=== PATIENT | female | born 1945 | race Caucasian/White ===

== ENCOUNTER → 2016-09-26 | Outpatient (CLI) | payer BC ==
[~2016-09-26] MED LIST: ASPCH81 PO; ASPI81TA28 PO; ATV1 PO; CALCCAP17 PO; CEFD300C2 PO; CHOL2000 PO; HYDC25 PO; HYDR25TA4 PO; MCRK20 PO; MECL1TAB42 PO; MECL25TA2 PO; MULT-19 PO; MULT-506 PO; OMEG10007 PO; OSCD250 PO; POTA20TA16 PO; PRAV10TA39 PO; PRAV20TA PO; VITAMIN D3 PO
[2016-09-26 13:14] LABS: ALT/SGPT 31 U/L (12-78); BLOOD UREA NITROGEN 14 mg/dl (7-18); BUN/CREATININE RATIO 15.5 (10-20); CALCIUM 9.1 mg/dl (8.5-10.1); CARBON DIOXIDE 27 mmol/L (21-32); CHLORIDE 104 mmol/L (98-107); CHOLESTEROL 203 mg/dl (0-200); CREATININE 0.89 mg/dl (0.60-1.20); GLUCOSE 93 mg/dl (70-99); POTASSIUM 3.5 mmol/L (3.5-5.1); SODIUM 139 mmol/L (136-145); TRIGLYCERIDES 113 mg/dl (0-150); VERY LOW DENSITY LIPOPROT CALC 23 mg/dl
[2016-09-26 13:18] LABS: ALB/GLOB RATIO 0.9 (0.9-2); ALKALINE PHOSPHATASE 63 U/L (45-117); AST/SGOT 22 U/L (15-37); CHOLESTEROL/HDL RATIO 3.2; HDL CHOLESTEROL 63 mg/dl; LDL CHOLESTEROL CALCULATED 117 mg/dl
== END | disposition home or self-care (01) ==
LOC: C.LABPVFM 09:18
PROVIDERS: ATTEND Family Medicine
DX: E78.5 Hyperlipidemia, unspecified (principal); I10 Essential (primary) hypertension; E83.52 Hypercalcemia

== ENCOUNTER → 2016-10-09 | Outpatient (CLI) | payer BC | END | disposition home or self-care (01) | LOC: C.LABPVFM 09:20 | PROVIDERS: ATTEND Family Medicine | DX: Z11.59 Encounter for screening for other viral diseases (principal) ==

== ENCOUNTER → 2017-01-01 | Outpatient (CLI) | payer BC ==
--- NOTE | 2017-01-01 13:07 | MAMMOGRAPHY REPORT ---
BILATERAL DIGITAL SCREENING MAMMOGRAM WITH CAD: 01/01/2017 CLINICAL HISTORY: Routine screening. Patient has no complaints. TECHNIQUE: Current study was also evaluated with a Computer Aided Detection (CAD) system. Bilatera l CC and MLO views were obtained. COMPARISON: Comparison is made to exams dated: 01/01/2016 mammogram, 12/28/2014 mammogram, 12/27/2013 mammogram, 12/21/2012 mammogram, 12/15/2011 ultrasound, and 12/15/2011 mammogram - [facility]. BREAST COMPOSITION: There are scattered areas of fibroglandular density in both breasts. FINDINGS: No suspicious masses, calcifications, or areas of architectural distortion are noted in e ither breast. There has been no significant interval change compared to prior exams. Small nodular asymmetry in the right medial breast middle depth on the CC view is similar to prior exams including the 2009 and 2012 exams. IMPRESSION: ACR BI-RADS CATEGORY 2: BENIGN There is no mammographic evidence of malignancy. A 1 year screening mammogram is recommended. The p atient will receive written notification of the results. Approximately 10% of breast cancers are not detected with mammography. A negative mammographic repor t should not delay biopsy if a clinically suggestive mass is present. Ivone Cooper M.D. ah/:01/01/2017 12:18:15 Animal Surgeon: Omayra RO(Sena)(M), [facility] letter sent: Normal 1/2 BI-RADS Code: ACR BI-RADS Category 2: Benign
== END | disposition home or self-care (01) ==
LOC: C.MAMM 09:55
PROVIDERS: ATTEND Family Medicine
DX: Z12.31 Encounter for screening mammogram for malignant neoplasm of breast (principal)

== ENCOUNTER 2017-02-23 21:07 | Emergency (ER) | payer BC ==
[~2017-02-23] VITALS: Ht 160 cm; Wt 68.1 kg
[~2017-02-23 21:07] MED LIST changes: -ASPI81TA28 PO; -CALCCAP17 PO; -CEFD300C2 PO; -CHOL2000 PO; -HYDR25TA4 PO; -MCRK20 PO; -MECL1TAB42 PO; -MULT-19 PO; -PRAV10TA39 PO
[2017-02-23 21:18] VITALS: TEMP 36.6; Ht 160 cm; Wt 68.1 kg
[2017-02-23 22:12] LABS: URINE APPEARANCE CLEAR (CLEAR); URINE BILIRUBIN NEG (NEG); URINE COLOR YELLOW; URINE EPITHELIAL CELL AUTO >30 /lpf (0-5); URINE NITRITE NEG (NEG); URINE SPECIFIC GRAVITY 1.012 (1.000-1.030); UROBILINOGEN NEG (NEG); ZZUR CULT IF INDIC CLEAN CATCH YES
[2017-02-23 22:14] LABS: MANUAL MICROSCOPIC REQUIRED? NO; REVIEW REQ? NO
[2017-02-23] MEDS ORDERED: PRAV10TA39 PO (22:17)
[2017-02-23] MEDS ORDERED: HYDR25TA4 PO (22:17)
[2017-02-23] MEDS ORDERED: SODIUM CHLORIDE 0.9% 1000ML 1,000 ML IV STA (22:17)
[2017-02-23] MEDS ORDERED: ASPI81TA28 PO (22:17)
[2017-02-23] MEDS ORDERED: MULT-19 PO (22:17)
[2017-02-23] MEDS ORDERED: ONDANSETRON INJ 2 MG/ML 2 ML VIAL IV STA (22:17)
[2017-02-23] MEDS ORDERED: CALCCAP17 PO (22:17)
[2017-02-23] MEDS ORDERED: MECL1TAB42 PO (22:17)
[2017-02-23] MEDS ORDERED: MCRK20 PO (22:17)
[2017-02-23] MEDS ORDERED: CHOL2000 PO (22:17)
[2017-02-23] MEDS ORDERED: MoRPHine SULFATE 4 MG/ML 1 ML CARP\\VIAL IV STA (22:17)
[2017-02-23] MEDS ORDERED: OPTIRAY 320 IV PRN (22:30)
[2017-02-23 22:46] LABS: BASO % 0.5 %; BASO ABS # 0.03 K/uL (0-0.2); COMPLETE YES; HEMATOCRIT 43.4 % (37-47); IG% 0.3 %; LYMPH % 30.2 %; LYMPH ABS # 1.75 K/uL (1.2-3.4); MEAN CELL VOLUME 86.8 fL (80-100); MEAN CORPUSCULAR HEMOGLOBIN 29.2 pg (25-34); MEAN CORPUSCULAR HGB CONC 33.6 g/dl (32-36); MEAN PLATELET VOLUME 9.1 fL (7.4-10.4); MONO % 10.9 %; NEUT % 57.1 %; PLATELET COUNT 251 K/uL (130-400); WHITE BLOOD COUNT 5.79 K/uL (4.8-10.8)
[2017-02-23 22:53] LABS: ISTAT CREATININE 0.9 mg/dl (0.6-1.3); ISTAT HEMOGLOBIN 14.3 g/dl (12.0-16.0); ISTAT IONIZED CALCIUM 1.19 mmol/l (1.12-1.32)
[2017-02-23 23:03] LABS: ALT/SGPT 29 U/L (12-78); BLOOD UREA NITROGEN 18 mg/dl (7-18); BUN/CREATININE RATIO 17.5 (10-20); CALCIUM 9.5 mg/dl (8.5-10.1); CARBON DIOXIDE 27 mmol/L (21-32); CHLORIDE 104 mmol/L (98-107); GLUCOSE 119 mg/dl (70-99); POTASSIUM 3.4 mmol/L (3.5-5.1); SODIUM 140 mmol/L (136-145)
[2017-02-23 23:06] LABS: ALKALINE PHOSPHATASE 72 U/L (45-117); AST/SGOT 16 U/L (15-37)
--- NOTE | 2017-02-23 23:06 | EMERGENCY ROOM VISIT NOTE ---
History Report prepared by Carlos: Rachelle Yang Under the Supervision of: Dr. Larry Doss M.D. First contact with patient: 21:53 Chief Complaint: BACK PAIN Stated Complaint: BACK PAIN History of Present Illness The patient is a 71 year old female who presents to the Emergency Room with complaints of persistent right flank pain starting last night. She states that she is unable to get comfortable. She applied any Icy Hot patch last night and was able to sleep. This morning she was feeling well until the late afternoon when the pain started again. She took half of a Aurora today to no significant relief. She denies any fever, chills, dysuria, hematuria, swelling in the legs, or rash. Her appetite was normal today. She denies any history of kidney stones. She has had UTI in the past, but has not had one in a while. She denies any history of kidney failure, metformin use, or diabetes. Source of History: patient Onset: last night Position: other (right flank) Quality: other (pain) Timing: other (persistent) Associated Symptoms: No fevers, No chills, No urinary symptoms, No rash Note: Pt denies swelling in the legs. Review of Systems See HPI for pertinent positives & negatives. A total of 10 systems reviewed and were otherwise negative. Past Medical & Surgical Medical Problems: (1) Hypertension Surgical Problems: (1) S/P tubal ligation Family History Diabetes mellitus FHx: gallbladder disease Hypertension Social History Smoking Status: Never Smoker Alcohol Use: none Drug Use: none Marital Status: Housing Status: lives with significant other Occupation Status: retired Current/Historical Medications Scheduled Aspirin (Aspirin Ec), 81 MG PO Q2D Calcium Carbonate-Vitamin D (Calcium/Vitamin D), 1 CAP PO DAILY Cefdinir (Omnicef), 300 MG PO Q12H Cholecalciferol (Vitamin D3), 2,000 INTER.UNIT PO DAILY Fish Oil ([place]-3), 1 CAP PO DAILY Hydrochlorothiazide (Hctz), 25 MG PO DAILY Multiple Vitamins W/ Minerals (Prosight), 1 TAB PO DAILY Multivitamin (Multivitamin), 1 TAB PO DAILY Potassium Chloride (Klor-Con M20), 20 MEQ PO BID Pravastatin Sodium (Pravastatin Sodium), 10 MG PO DAILY Scheduled PRN Meclizine Hcl (Meclizine Hcl), 25 MG PO TID PRN for Dizziness or Vertigo Allergies Coded Allergies: Fentanyl (Verified Allergy, Intermediate, RASH, 01/05/16) Midazolam (Verified Allergy, Intermediate, RASH, 01/05/16) Tetracyclines (Verified Allergy, Mild, 01/05/16) Physical Exam Vital Signs Date Time Temp Pulse Resp B/P (MAP) Pulse Ox O2 Delivery O2 Flow Rate FiO2 02/24/17 00:57 74 16 144/89 94 Room Air 02/23/17 23:28 80 16 151/75 95 Room Air 02/23/17 21:18 36.6 86 20 177/96 95 Room Air Physical Exam GENERAL: Patient is uncomfortable appearing and in mild distress. HEENT: No acute trauma, normocephalic atraumatic, mucous membranes moist, no nasal congestion, no scleral icterus. NECK: No stridor, no adenopathy, no meningismus, trachea is midline. LUNGS: No dyspnea. Clear to auscultation and equal bilaterally. No wheeze, no rhonchi. HEART: Regular rate and rhythm. No murmurs, rubs, gallops appreciated. ABDOMEN: Soft, nontender, bowel sounds positive, no masses appreciated, no peritonitis. BACK: No midline tenderness, right CVA tenderness to palpation EXTREMITIES: Normal motion all extremities, no cyanosis, no edema. NEUROLOGIC: Alert and oriented, no acute motor or sensory deficits, no focal weakness, cranial nerves grossly intact. SKIN: No rash, no jaundice, no diaphoresis. Medical Decision & Procedures ER Provider Diagnostic Interpretation: Radiology results and stated below per my review and [facility] radiologist interpretation: CT abdomen & Pelvis: Colonic diverticula without diverticulitis. Unremarkable appendix. Haziness and small nodes in the mesentery that may be from mesenteric panniculitis. There is a broader differential. Uterine fibroid. Pessary. Cardiomegaly. Laboratory Results 02/23/17 22:35 Red Blood Count 5.00, Mean Corpuscular Volume 86.8, Mean Corpuscular Hemoglobin 29.2, Mean Corpuscular Hemoglobin Concent 33.6, Mean Platelet Volume 9.1, Neutrophils (%) (Auto) 57.1, Lymphocytes (%) (Auto) 30.2, Monocytes (%) (Auto) 10.9, Eosinophils (%) (Auto) 1.0, Basophils (%) (Auto) 0.5, Neutrophils # (Auto ) 3.30, Lymphocytes # (Auto) 1.75, Monocytes # (Auto) 0.63, Eosinophils # (Auto ) 0.06, Basophils # (Auto) 0.03 02/23/17 22:35 Test 02/23/17 21:45 02/23/17 22:35 02/23/17 22:40 Urine Color YELLOW Urine Appearance CLEAR (CLEAR) Urine pH 6.0 (4.5-7.5) Urine Specific [place] 1.012 (1.000-1.030) Urine Protein NEG (NEG) Urine Glucose (UA) NEG (NEG) Urine Ketones NEG (NEG) Urine Occult Blood 1+ (NEG) Urine Nitrite NEG (NEG) Urine Bilirubin NEG (NEG) Urine Urobilinogen NEG (NEG) Urine Leukocyte Esterase LARGE (NEG) Urine WBC (Auto) 10-30 /hpf (0-5) Urine RBC (Auto) 0-4 /hpf (0-4) Urine Hyaline Casts (Auto) 0 /lpf (0-5) Urine Epithelial Cells (Auto) >30 /lpf (0-5) Urine Bacteria (Auto) NEG (NEG) White Blood Count 5.79 K/uL (4.8-10.8) Red Blood Count 5.00 M/uL (4.2-5.4) Hemoglobin 14.6 g/dL (12.0-16.0) Hematocrit 43.4 % (37-47) Mean Corpuscular Volume 86.8 fL (80-100) Mean Corpuscular Hemoglobin 29.2 pg (25-34) Mean Corpuscular Hemoglobin Concent 33.6 g/dl (32-36) Platelet Count 251 K/uL (130-400) Mean Platelet Volume 9.1 fL (7.4-10.4) Neutrophils (%) (Auto) 57.1 % Lymphocytes (%) (Auto) 30.2 % Monocytes (%) (Auto) 10.9 % Eosinophils (%) (Auto) 1.0 % Basophils (%) (Auto) 0.5 % Neutrophils # (Auto) 3.30 K/uL (1.4-6.5) Lymphocytes # (Auto) 1.75 K/uL (1.2-3.4) Monocytes # (Auto) 0.63 K/uL (0.11-0.59) Eosinophils # (Auto) 0.06 K/uL (0-0.5) Basophils # (Auto) 0.03 K/uL (0-0.2) RDW Standard Deviation 40.6 fL (36.4-46.3) RDW Coefficient of Variation 12.7 % (11.5-14.5) Immature Granulocyte % (Auto) 0.3 % Immature Granulocyte # (Auto) 0.02 K/uL (0.00-0.02) Est Creatinine Clear Calc Drug Dose 47.1 ml/min Estimated GFR () 65.2 Estimated GFR (Non- 56.2 BUN/Creatinine Ratio 17.5 (10-20) Calcium Level 9.5 mg/dl (8.5-10.1) Total Bilirubin 0.2 mg/dl (0.2-1) Direct Bilirubin < 0.1 mg/dl (0-0.2) Aspartate Amino Transf (AST/SGOT) 16 U/L (15-37) Alanine Aminotransferase (ALT/SGPT) 29 U/L (12-78) Alkaline Phosphatase 72 U/L (45-117) Total Protein 7.2 gm/dl (6.4-8.2) Albumin 3.6 gm/dl (3.4-5.0) Lipase 289 U/L (73-393) Bedside Hemoglobin 14.3 g/dl (12.0-16.0) Bedside Hematocrit 42 % (37-47) Bedside Sodium 141 mEq/L (135-144) Bedside Potassium 3.5 mEq/L (3.3-5.0) Bedside Chloride 100 mEq/L (101-112) Bedside Total CO2 26 mEq/l (24-31) Anion Gap 19.0 mmol/L (16-25) Bedside Blood Urea Nitrogen 18 mg/dl (7-18) Bedside Creatinine 0.9 mg/dl (0.6-1.3) Bedside Glucose (other) 123 mg/dl (70-99) Bedside Ionized Calcium (Rock[place]) 1.19 mmol/l (1.12-1.32) Laboratory results as reviewed by me. Medications Administered Medications (Trade) Dose Ordered Sig/Anna Route Start Time Stop Time Status Last Admin Dose Admin Sodium Chloride 1,000 ml @ 999 mls/hr Q1H1M STAT IV 02/23/17 22:17 02/23/17 23:17 DC 02/23/17 22:17 999 MLS/HR Morphine Sulfate (MoRPHine SULFATE INJ) 4 mg NOW STAT IV 02/23/17 22:17 02/23/17 22:19 DC 02/23/17 22:47 4 MG Ondansetron HCl (Zofran Inj) 4 mg NOW STAT IV 02/23/17 22:17 02/23/17 22:19 DC 02/23/17 22:46 4 MG Cephalexin Monohydrate (Keflex Cap) 500 mg NOW ONCE PO 02/24/17 01:00 02/24/17 01:01 DC 02/24/17 01:03 500 MG Ondansetron HCl (ZOFRAN ODT 4MG Home Pack) 1 homepack UD ONCE PO 02/24/17 01:00 02/24/17 01:01 DC 02/24/17 01:03 1 HOMEPACK ED Course 2156: The patient was evaluated in room B7. A complete history and physical exam was performed. 2217: Zofran Inj 4 mg IV, Morphine Sulfate 4 mg IV, NSS 1000 ml @ 999 mls/hr IV. 2340: I reevaluated the patient. She is doing well. 0050: I reevaluated the patient. I discussed results and discharge instructions : she verbalized understanding and agreement. The patient is ready for discharge. Medical Decision Differential: Renal Colic, Pyelonephritis, Hydronephrosis, Appendicitis, Diverticulitis, Retroperitoneal Bleed/Infection, Aortic Pathology, MSK, Neurologic Pathology, amongst other pathologies entertained. Medication Reconciliation: I attest that I have personally reviewed the patient 's current medication list. Blood pressure screening: Patient was found to have an elevated blood pressure and was referred to their primary doctor for recheck and further treatment. 71 yr old very pleasant female with sudden onset right flank pain along with dark urine. UA consistent with UTI. No stone on CT in ureter though mesenteric adenitis noted. Pessary in place. No respiratory nor cardiac symptoms and no evidence to suggest PE work-up necessary. Labs look good. She is feeling better after small dose narcotic. She will be treated with Abx for possible pyelonephritis. Stressed hydration. Reviewed possibility early zoster or other cause but with current findings seems reasonable treating with abx/home pain meds. Impression Primary Impression: Pyelonephritis Additional Impressions: Right flank pain Mesenteric adenitis Scribe Attestation The scribe's documentation has been prepared under my direction and personally reviewed by me in its entirety. I confirm that the note above accurately reflects all work, treatment, procedures, and medical decision making performed by me. Departure Information Dispostion Home / Self-Care Prescriptions Cefdinir (OMNICEF) 300 Mg Cap 300 MG PO Q12H for 7 Days, #14 CAP Prov: Larry Doss M.D. 02/24/17 Referrals Randall Menezes M.D. (PCP) Patient Instructions My [facility], Pyelonephritis - [facility] Problem Qualifiers
[2017-02-24 00:57] VITALS: BP 144/89; PULSE 74; O2SAT 94
[2017-02-24] MEDS ORDERED: CEFD300C2 PO (00:58)
[2017-02-24] MEDS ORDERED: ONDANSETRON HOME PACK 4MG OD TAB PO ONE (01:00)
[2017-02-24] MEDS ORDERED: CEPHALEXIN MONOHYDRATE 250 MG CAP PO ONE (01:00)
--- NOTE | 2017-02-24 06:49 | DIAGNOSTIC IMAGING REPORT ---
ABDOMEN AND PELVIS CT WITH IV CONTRAST CT DOSE: 387.67 mGy.cm HISTORY: Pain right flank pain, nausea, UTI TECHNIQUE: Multiaxial CT images of the abdomen and pelvis were performed following the use of intravenous contrast. COMPARISON STUDY: 2011 FINDINGS: Lung bases are clear. Liver spleen and pancreas enhance uniformly. Kidneys enhance uniformly. Bowel pattern is nonobstructive. There is a subtle increase in density through the mesentery. Several small reactive mesenteric nodes. Bowel pattern is nonobstructive. Prior bladder suspension procedure. Bladder itself is midline. Mild chronic colonic diverticulosis. Normal appendix. 3.5 cm uterine fibroid. IMPRESSION: 1. Mild mesenteric adenitis. 2. Stable postoperative change. 3. Uterine fibroid. Electronically signed by: Lon Seay M.D. 02/24/2017 6:47 AM Dictated Date/Time: 02/24/2017 6:44 AM
== END 2017-02-24 01:05 | disposition home or self-care (01) ==
LOC: C.EDB 21:08
DX: N12 Tubulo-interstitial nephritis, not specified as acute or chronic (principal); R10.9 Unspecified abdominal pain; I88.0 Nonspecific mesenteric lymphadenitis; I10 Essential (primary) hypertension; Z83.3 Family history of diabetes mellitus; Z82.49 Family history of ischemic heart disease and other diseases of the circulatory system; Z83.79 Family history of other diseases of the digestive system; Z79.82 Long term (current) use of aspirin; Z79.899 Other long term (current) drug therapy

== ENCOUNTER → 2017-03-10 | Outpatient (CLI) | payer BC ==
[~2017-03-10] MED LIST changes: -ASPCH81 PO; +ASPI81TA28 PO; -ATV1 PO; +CALCCAP17 PO; +CHOL2000 PO; -HYDC25 PO; +HYDR25TA4 PO; +MCRK20 PO; +MECL1TAB42 PO; -MECL25TA2 PO; +MULT-19 PO; -OSCD250 PO; -POTA20TA16 PO; +PRAV10TA39 PO; -PRAV20TA PO; -VITAMIN D3 PO
[2017-03-10 13:00] LABS: URINE APPEARANCE CLOUDY (CLEAR); URINE BILIRUBIN NEG (NEG); URINE COLOR YELLOW; URINE EPITHELIAL CELL AUTO >30 /lpf (0-5); URINE NITRITE NEG (NEG); URINE SPECIFIC GRAVITY 1.019 (1.000-1.030); UROBILINOGEN NEG (NEG); ZZUR CULT IF INDIC CLEAN CATCH YES
[2017-03-10 13:05] LABS: MANUAL MICROSCOPIC REQUIRED? NO; REVIEW REQ? YES
== END | disposition home or self-care (01) ==
LOC: C.LABPVFM 09:23
PROVIDERS: ATTEND Nurse Practitioner
DX: N39.0 Urinary tract infection, site not specified (principal)

== ENCOUNTER → 2017-03-27 | Outpatient (CLI) | payer BC ==
[2017-03-27 18:20] LABS: ALKALINE PHOSPHATASE 58 U/L (45-117); ALT/SGPT 28 U/L (12-78); AST/SGOT 20 U/L (15-37); BLOOD UREA NITROGEN 12 mg/dl (7-18); BUN/CREATININE RATIO 13.6 (10-20); CALCIUM 9.2 mg/dl (8.5-10.1); CARBON DIOXIDE 28 mmol/L (21-32); CHLORIDE 104 mmol/L (98-107); CHOLESTEROL 191 mg/dl (0-200); CREATININE 0.86 mg/dl (0.60-1.20); GLUCOSE 90 mg/dl (70-99); HDL CHOLESTEROL 63 mg/dl; LDL CHOLESTEROL CALCULATED 104 mg/dl; POTASSIUM 3.6 mmol/L (3.5-5.1); SODIUM 138 mmol/L (136-145); TRIGLYCERIDES 120 mg/dl (0-150); VERY LOW DENSITY LIPOPROT CALC 24 mg/dl
[2017-03-30 16:02] LABS: ALBUMIN 4.2 G/DL (3.8-4.8); GAMMA GLOBULIN 1.1 G/DL (0.8-1.7); IMMUNOFIXATION IGA SERUM 254 MG/DL (81-463); IMMUNOFIXATION IGG SERUM 1101 MG/DL (694-1618); IMMUNOFIXATION IGM SERUM 191 MG/DL (48-271)
== END | disposition home or self-care (01) ==
LOC: C.LABPVFM 09:23
PROVIDERS: ATTEND Family Medicine
DX: E78.5 Hyperlipidemia, unspecified (principal); I10 Essential (primary) hypertension; E87.6 Hypokalemia; E55.9 Vitamin D deficiency, unspecified; R77.1 Abnormality of globulin

== ENCOUNTER → 2017-09-07 | Outpatient (CLI) | payer OTHER ==
--- NOTE | 2017-09-07 14:25 | DIAGNOSTIC IMAGING REPORT ---
L VENOUS DOPP LOWER EXT UNILAT HISTORY: 71 years-old Female M79.669 Calf painM79.659 Thigh painSTAT REPORT PLEASE...[id number] acute left-sided calf pain COMPARISON: None available TECHNIQUE: Multiple real-time sonographic images of the left lower extremity deep venous structures were obtained assessing grayscale appearance, color and spectral flow FINDINGS: There is normal flow, phasicity, compressibility and augmentation of the left lower extremity deep venous structures. IMPRESSION: No sonographic evidence of deep venous thrombosis. The above report was generated using voice recognition software. It may contain grammatical, syntax or spelling errors. Electronically signed by: Richardson Regalado M.D. 09/07/2017 2:24 PM Dictated Date/Time: 09/07/2017 2:23 PM
== END | disposition home or self-care (01) ==
LOC: C.ULTRBC 13:46
PROVIDERS: ATTEND Family Medicine
DX: M79.669 Pain in unspecified lower leg (principal); M79.659 Pain in unspecified thigh

== ENCOUNTER → 2017-09-30 | Outpatient (CLI) | payer OTHER ==
[2017-09-30 12:57] LABS: ALBUMIN 3.9 gm/dl (3.4-5.0); ALT/SGPT 31 U/L (12-78); BLOOD UREA NITROGEN 16 mg/dl (7-18); CALCIUM 9.2 mg/dl (8.5-10.1); CARBON DIOXIDE 26 mmol/L (21-32); CHOLESTEROL 203 mg/dl (0-200); CREATININE 0.85 mg/dl (0.60-1.20); GLUCOSE 88 mg/dl (70-99); POTASSIUM 3.6 mmol/L (3.5-5.1); SODIUM 137 mmol/L (136-145)
[2017-09-30 13:01] LABS: ALKALINE PHOSPHATASE 57 U/L (45-117); AST/SGOT 21 U/L (15-37); LDL CHOLESTEROL CALCULATED 127 mg/dl; TOTAL PROTEIN 7.7 gm/dl (6.4-8.2)
== END | disposition home or self-care (01) ==
LOC: C.LABPVFM 09:13
PROVIDERS: ATTEND Family Medicine
DX: I10 Essential (primary) hypertension (principal); E87.6 Hypokalemia; F41.9 Anxiety disorder, unspecified; E78.00 Pure hypercholesterolemia, unspecified; R77.1 Abnormality of globulin; G47.00 Insomnia, unspecified

== ENCOUNTER → 2017-10-02 | Outpatient (CLI) | payer OTHER ==
--- NOTE | 2017-10-02 10:08 | DIAGNOSTIC IMAGING REPORT ---
L KNEE 1 OR 2 VIEWS ROUTINE CLINICAL HISTORY: Arthritis of knee Muscle strain of thigh pain COMPARISON: None. DISCUSSION: The bones and joint spaces appear intact. There is no evidence of fracture, dislocation or bony disease. Mild osteophytic change of the tibial spines. Minimal degenerative changes of the articular services of the patellofemoral joint. No significant joint effusion. IMPRESSION: Minimal degenerative change. No acute bony abnormality. The above report was generated using voice recognition software. It may contain grammatical, syntax or spelling errors. Electronically signed by: Lon Seay M.D. 10/02/2017 10:07 AM Dictated Date/Time: 10/02/2017 10:06 AM
== END | disposition home or self-care (01) ==
LOC: C.RADPV 09:35
PROVIDERS: ATTEND Family Medicine
DX: M17.10 Unilateral primary osteoarthritis, unspecified knee (principal); S76.919A Strain of unspecified muscles, fascia and tendons at thigh level, unspecified thigh, initial encounter; X58.XXXA Exposure to other specified factors, initial encounter

== ENCOUNTER → 2018-01-04 | Outpatient (CLI) | payer OTHER ==
--- NOTE | 2018-01-05 13:17 | MAMMOGRAPHY REPORT ---
BILATERAL DIGITAL SCREENING MAMMOGRAM TOMOSYNTHESIS WITH CAD: 01/04/2018 CLINICAL HISTORY: Routine screening. Patient has no complaints. TECHNIQUE: Breast tomosynthesis in addition to standard 2D mammography was performed. Current study was also evaluated with a Computer Aided Detection (CAD) system. COMPARISON: Comparison is made to exams dated: 01/01/2017 mammogram, 01/01/2016 mammogram, 12/28/2014 m ammogram, 12/27/2013 mammogram, 12/21/2012 mammogram, and 12/15/2011 mammogram - [facility]. BREAST COMPOSITION: There are scattered areas of fibroglandular density in both breasts. FINDINGS: The parenchymal pattern is unchanged. No developing mass, architectural distortion or clus ter of suspicious microcalcifications is seen in either breast. IMPRESSION: ACR BI-RADS CATEGORY 2: BENIGN There is no mammographic evidence of malignancy. A 1 year screening mammogram is recommended. The pa tient will receive written notification of the results. Approximately 10% of breast cancers are not detected with mammography. A negative mammographic report should not delay biopsy if a clinically suggestive mass is present. Olive Burgess M.D. ay/:01/04/2018 15:40:49 Welcome Wagon Host/Hostess: Ana RO(Sena)(M), [facility] letter sent: Normal 1/2 BI-RADS Code: ACR BI-RADS Category 2: Benign
== END | disposition home or self-care (01) ==
LOC: C.MAMM 09:33
PROVIDERS: ATTEND Family Medicine
DX: Z12.31 Encounter for screening mammogram for malignant neoplasm of breast (principal)

== ENCOUNTER → 2018-03-31 | Outpatient (CLI) | payer OTHER ==
[2018-03-31 12:57] LABS: ALBUMIN 3.9 gm/dl (3.4-5.0); ALKALINE PHOSPHATASE 52 U/L (45-117); ALT/SGPT 28 U/L (12-78); AST/SGOT 23 U/L (15-37); BLOOD UREA NITROGEN 16 mg/dl (7-18); CALCIUM 9.2 mg/dl (8.5-10.1); CARBON DIOXIDE 26 mmol/L (21-32); CHOLESTEROL 193 mg/dl (0-200); GLUCOSE 94 mg/dl (70-99); LDL CHOLESTEROL CALCULATED 114 mg/dl; POTASSIUM 3.4 mmol/L (3.5-5.1); SODIUM 136 mmol/L (136-145); TOTAL PROTEIN 7.8 gm/dl (6.4-8.2)
== END | disposition home or self-care (01) ==
LOC: C.LABPVFM 09:08
PROVIDERS: ATTEND Family Medicine
DX: E78.5 Hyperlipidemia, unspecified (principal); I10 Essential (primary) hypertension; G47.00 Insomnia, unspecified; M17.10 Unilateral primary osteoarthritis, unspecified knee; S76.919A Strain of unspecified muscles, fascia and tendons at thigh level, unspecified thigh, initial encounter; X58.XXXA Exposure to other specified factors, initial encounter

== ENCOUNTER → 2018-04-08 | Outpatient (CLI) | payer OTHER | END | disposition home or self-care (01) | LOC: C.MAMM 09:20 | PROVIDERS: ATTEND Family Medicine | DX: Z13.820 Encounter for screening for osteoporosis (principal); M81.0 Age-related osteoporosis without current pathological fracture; M85.89 Other specified disorders of bone density and structure, multiple sites ==

== ENCOUNTER 2022-12-11 05:18 | Observation (INO) ==
--- NOTE | 2022-12-02 14:23 | Anesthesiology Consultation ---
Date of Service December 02, 2022 Assessment & Plan (1) Encounter for pre-operative examination: Chart Review Chart Review: Acceptable Risk for Surgery and Patient NOT seen in Pre Admission Testing -COVID screening: Per PAT nursing assessment on 12/02/22. No known COVID-19 positive contacts or current COVID-19 related symptoms. Travel screen negative. Patient vaccinated for Covid. At surgeon discretion if preop Covid testing being done. Pt last seen by PCP 11/07/22= seen for ER follow-up regarding chest pain/indigestion. Epigastric/substernal chest pain x1 week. Intermittent/not related to exertion. Full work-up including troponins, EKG, chest x-ray and other BW all unremarkable. Also unremarkable telemetry. Patient advised that most likely her symptoms are noncardiac in nature and likely GI related in light of negative work-up. Patient was asked to increase pantoprazole and add Pepcid. Patient advised to follow-up with GI and PCP. Patient referred to general surgery for consultation regarding hernia repair to solve reflux esophagitis. Endoscopy done 1 year ago with only gastritis, no malignancy or H. pylori on biopsy. Chest painlikely due to GERD rather than cardiac etiology. Red flags discussed nevertheless. (Discussed with Dr. Mar- patient can proceed as scheduled; no physical limitations per nursing assessment) History Surgery Operation Date: 12/11/22 07:15 Proposed Procedures p Laparoscipic Hiatal Hernia, T[place] Fundoplication - Blair Beard, DO Height/Weight Height: 5 ft 2 in Weight: 58.967 kg Allergies Allergy/AdvReac Type Severity Reaction Status Date / Time fentanyl Allergy Intermediate RASH Verified 12/02/22 13:21 midazolam Allergy Intermediate RASH Verified 12/02/22 13:21 cefdinir AdvReac Mild Gastrointestinal Verified 12/02/22 13:21 Upset Tetracyclines AdvReac Mild Gastrointestinal Verified 12/02/22 13:21 Upset Medications Home Medications Medication Instructions Recorded Confirmed Last Taken multivitamin 1 tab PO QAM 03/21/19 12/02/22 11/06/21 cholecalciferol (vitamin D3) 25 1,000 unit PO QAM 05/30/19 12/02/22 11/06/21 mcg (1,000 unit) tablet glucosam 750 mg-chondroi 100 1 tab PO QAM 05/30/19 12/02/22 11/06/21 mg-hyalur 1.65 mg-CF borate 108 mg tablet (Move Free Siteminis) calcium carbonate 600 mg calcium 600 mg PO QAM 11/04/21 12/02/22 11/06/21 (1,500 mg) tablet (Calcium) docusate sodium 100 mg capsule 100 mg PO HS PRN Constipation 02/27/22 12/02/22 Unknown levothyroxine 25 mcg tablet 25 mcg PO DAILYBB #90 tabs 08/26/22 12/02/22 11/02/22 losartan 25 mg tablet 25 mg PO HS #90 tabs 08/26/22 12/02/22 Unknown potassium chloride 20 mEq 40 meq PO QAM #180 tabs 08/26/22 12/02/22 Unknown tablet,extended release(part/cryst) (Klor-Con M) pravastatin 20 mg tablet 20 mg PO HS #90 tabs 08/26/22 12/02/22 Unknown hydrochlorothiazide 25 mg tablet 25 mg PO QAM #90 tabs 09/02/22 12/02/22 Unknown meclizine 25 mg tablet 25 mg PO TID PRN dizziness #60 tabs 11/07/22 12/02/22 Unknown famotidine 10 mg tablet (Pepcid AC) 10 mg PO QPM 11/25/22 12/02/22 Unknown pantoprazole 40 mg tablet,delayed 40 mg PO QAM 12/02/22 12/02/22 Unknown release Past Medical History Medical History Anxiety Brain aneurysm 3mm per 06/2022 head CTA (seeing neuro as a new patient 01/2023) Diverticulitis of colon Diverticulosis of colon Dysphagia Elevated serum globulin level Ganglion GERD (gastroesophageal reflux disease) Hiatal hernia History of anesthesia reaction difficulty waking Hyperlipidemia Hypertension Hypothyroidism Insomnia Osteopenia after menopause Rectocele Scoliosis Past Family History Family History Father Stroke syndrome Sister Diabetes Hypertension Brother Coronary heart disease Macular degeneration Mother Dementia Other No family history of adverse response to anesthesia Denies family history of Ovarian cancer Prostate cancer Myocardial infarction Breast cancer Colorectal cancer Past Surgical History Surgical History H/O: hysterectomy TVH, Anterior colporrhaphy, Biat uterosacral ligament vag vault suspension, cystoscopy on 01/26/[address] [facility] History of bladder suspension procedure History of colonoscopy History of tooth extraction Status post trigger finger release on both thumbs Social History Smoking Status: Never smoker Do You Dip or Chew Tobacco: No Hx Alcohol Use: Yes alcohol intake frequency: holidays/special occasions only Hx Substance Use: No substance use type: does not use Lab Results Anesthesia Preop Results Results Anesthesia Widget: WBC 5.13 K/ul (4.8-10.8) 11/02/22 Hgb 13.7 g/dl (12.0-16.0) 11/02/22 Hct 40.6 % (37.0-47.0) 11/02/22 Plt 250 K/uL (130-400) 11/02/22 Na 137 mmol/L (136-145) 11/02/22 K 3.5 mmol/L (3.5-5.1) 11/02/22 Cl 103 mmol/L (98-107) 11/02/22 CO2 27 mmol/L (21-32) 11/02/22 BUN 16 mg/dl (6-23) 11/02/22 Creat 0.74 mg/dl (0.6-1.2) 11/02/22 Glucose Level 115 mg/dl (70-99(Fasting)) H 11/02/22 PT 10.3 Seconds (9.0-12.0) 11/02/22 INR 1.0 (0.9-1.1) 11/02/22 Testing Electrocardiogram Date: 11/02/22 Poor data quality Normal sinus rhythm at 81 bpm When compared to EKG from July 082premature supraventricular complexes are no longer present per cardio Chest X-Ray Date: 11/02/22 Findings: + NAD Other Testing Neck CTA 07/08/22= No occlusion, hemodynamically significant stenosis, or dissection in the major cervical arteries. Assessment of stenosis of the internal carotid arteries is based on NASCET criteria. Head CTA 07/08/22= No acute intracranial abnormality. Involutional changes with chronic microvascular ischemic disease. 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 Otherwise unremarkable CTA of the head.
[2022-12-11] MEDS ORDERED: ceFAZolin 2000MG 2,000 MG/15 ML SYR IV SCH (06:00)
[2022-12-11] MEDS ORDERED: LR 15ML/HR IV SCH (06:00)
[2022-12-11] MEDS ORDERED: PROPOFOL IV EMULSION 10 MG/ML 20 ML VIAL IV ONE (06:55)
[2022-12-11] MEDS ORDERED: LIDOCAINE 2% MPF LOCAL 5 ML VIAL ONE (06:55)
[2022-12-11] MEDS ORDERED: SUCCINYLCHOLINE CHLORIDE 20 MG/ML 10 ML VIAL IV ONE (06:55)
[2022-12-11] MEDS ORDERED: PHENYLEPHRINE HCL 10 MG/ML VIAL ONE (06:55)
[2022-12-11] MEDS ORDERED: ePHEDrine sulfate 50 MG/ML AMP ONE (06:55)
[2022-12-11] MEDS ORDERED: ROCURONIUM BROMIDE 10 MG/ML 5 ML VIAL IV ONE (06:55)
[2022-12-11] MEDS ORDERED: MIDAZOLAM HCL 1 MG/ML 2ML VIAL ONE (06:56)
[2022-12-11] MEDS ORDERED: fentaNYL citrate PF 100 MCG/2 ML VIAL ONE ×2 (06:56→07:52)
--- NOTE | 2022-12-11 07:03 | History & Physical Bridge Note ---
Date of Service December 11, 2022 History & Physical Bridge Note I have examined the patient, reviewed the History & Physical and in the interval since the performance of the History & Physical I have noted the following changes of clinical significance: no changes noted
[2022-12-11] MEDS ORDERED: ONDANSETRON INJ 2 MG/ML 2 ML VIAL IV PRN ×2 (07:04→10:59)
[2022-12-11] MEDS ORDERED: ATROPINE SULFATE 0.1 MG/ML 10ML SYR IV PRN (07:04)
[2022-12-11] MEDS ORDERED: METOCLOPRAMIDE HCL INJ 5 MG/ML 2 ML VIAL IV PRN (07:04)
[2022-12-11] MEDS ORDERED: DEXAMETHASONE SOD INJ 4 MG/ML VIAL IV PRN (07:04)
[2022-12-11] MEDS ORDERED: ePHEDrine sulfate 50 MG/ML AMP IV PRN (07:04)
[2022-12-11] MEDS ORDERED: BUPIVACAINE/EPINEPHRINE 0.5% MPF 1:200,000 30 ML VIAL ONE (07:08)
[2022-12-11] MEDS ORDERED: diphenhydrAMINE 50 MG/ML VIAL ONE (07:51)
[2022-12-11] MEDS ORDERED: hydrALAZINE HCL 20 MG/ML VIAL ONE (07:53)
[2022-12-11] MEDS ORDERED: DEXAMETHASONE SOD INJ 4 MG/ML VIAL ONE (08:18)
[2022-12-11] MEDS ORDERED: ONDANSETRON INJ 2 MG/ML 2 ML VIAL ONE (08:18)
[2022-12-11] MEDS ORDERED: SUGAMMADEX SODIUM 200 MG/2 ML VIAL IV ONE (08:54)
--- NOTE | 2022-12-11 09:13 | Operative Report ---
PG Post Operative Report Pre & Post Diagnosis Operation Date: 12/11/22 07:15 Pre-Op Diagnosis: Hiatal Hernia;gerd Post-Op Diagnosis: Hiatal Hernia;gerd I identified the patient and participated in the time-out.: Yes Procedure Operation Date: 12/11/22 07:15 Actual Procedures p Laparoscopic Hiatal Hernia,Partial Fundoplication, gastropexy.(Not Applicable) - Blair Beard DO Surgeon Blair Beard DO Rn Triage ross Rodriguez Estimated Blood Loss 20 Findings Consistent with Post-Op Diagnosis Specimens none Description of Procedure After informed consent was obtained the patient was taken to the operating room and placed in supine position. After successful intubation an orogastric tube was placed by anesthesia. The abdomen was sterilely prepped and draped in usual fashion. A supraumbilical incision was made with an 11 blade scalpel and carried down through soft tissue using cautery. Anterior fascia was opened using cautery and two #0 Vicryl stay sutures were placed. Peritoneum was entered using blunt finger penetration to take down any adhesions. A 12 mm Singer trocar was placed and the abdomen was insufflated to 16 mmHg. The laparoscope was inserted and the abdomen examined 360 degrees. No gross abnormalities were seen. A subxiphoid 5 mm port, a right upper quadrant 12 mm port a right flank 5 mm port and a left flank 5 mm port were all placed under direct vision. The patient was placed in reverse Trendelenburg position. A liver retractor was used to elevate the left lobe of the liver. It was secured to the table using a table odell. We began by opening the gastrohepatic ligament using the harmonic scalpel. We carried this up the right crura of the diaphragm over the top and down onto the left crura of the diaphragm to excise the hernia sac. The hernia itself was relatively small probably 4 cm. There was no gastric incarceration. After excising the hernia sac we then took down the top four short gastric vessels again using the harmonic scalpel. We then created the retrogastric window using blunt dissection just above the left gastric vessels. Next I used an Endo Stitch device with 0 Surgidac to primarily close the hiatal hernia defect first posteriorly followed by anteriorly. Next we used a reticulating grasper to come through the retrogastric window and grasp ed the fundus of the stomach. The fundus was easily pulled through the retrogastric window. A posterior gastropexy was performed again using 0 Surgidac securing the body of the stomach to the right crura of the diaphragm. We then completed the 270 degree wrap by suturing stomach on the lateral side of the esophagus to the anterior esophageal fat pad followed by fundus which was now on the right side of the esophagus also to the anterior fat pad. The wrap was nice and loose and floppy. The 50 [place] bougie was easily removed. At the end the procedure there was adequate hemostasis. Irrigation of the upper abdomen was performed. The liver retractor and all the trocars were removed and the abdomen desufflated. The fascia of the camera port was closed using 0 Vicryl in a [id number] fashion. All the wounds were irrigated and closed using 4-0 Monocryl. Marcaine with epinephrine was injected around them for postoperative analgesia and skin glue used as a dressing. My physician captain assistant was present through the entire case was instrumental in running the camera as well as assisting with repair of the hernia fundoplication wound closure and dressing placement. I attest to the content of the Intraoperative Record and any orders documented therein. Any exceptions are noted below.
[2022-12-11] MEDS: HYDROmorphone INJ 1 MG/ML SYRINGE IV PRN ×5 (09:30→10:00)
[2022-12-11] MEDS ORDERED: ACETAMINOPHEN 1,000 MG/100 ML VIAL IV STA (10:06)
[2022-12-11] MEDS ORDERED: ACETAMINOPHEN 1000 MG/100 ML IV IV ONE (10:06)
[2022-12-11] MEDS ORDERED: oxyCODONE HCL IR 5 MG TAB (IMMEDIATE RELEASE) PO PRN ×2 (10:59)
[2022-12-11] MEDS ORDERED: PROMETHAZINE HCL 12.5 MG in SODIUM CHLORIDE 0.9% 50 ML IV PRN (10:59)
[2022-12-11] MEDS ORDERED: MoRPHine SULFATE 2 MG/ML CARP IV PRN (10:59)
[2022-12-11] MEDS ORDERED: MECLIZINE HCL 25 MG TAB PO PRN (10:59)
--- NOTE | 2022-12-11 11:21 | Anesthesiology Progress Note ---
Date of Service December 11, 2022 Anesthesia Post Procedure Vital Signs Vital Signs: Temp Pulse Pulse Resp BP Pulse Ox O2 Del Method 12/11/22 10:50 36.8 C 102 H 14 142/68 H 95 Room Air, Nasal Cannula 12/11/22 10:40 111 H 16 146/59 H 95 Nasal Cannula 12/11/22 10:30 111 H 15 135/67 94 Nasal Cannula 12/11/22 10:20 112 H 18 149/63 H 94 Nasal Cannula 12/11/22 10:10 37.0 C 106 H 16 146/71 H 95 Nasal Cannula 12/11/22 10:00 110 H 19 157/71 H 94 Nasal Cannula 12/11/22 09:50 108 H 16 157/69 H 94 Oxymask 12/11/22 09:40 107 H 20 152/70 H 94 Oxymask 12/11/22 09:30 106 H 18 165/76 H 97 Oxymask 12/11/22 09:20 106 H 19 162/73 H 98 Oxymask 12/11/22 09:10 36.4 C L 108 H 19 161/70 H 95 Oxymask 12/11/22 06:00 36.3 C L 83 20 163/88 H 97 Room Air O2 Flow Rate 12/11/22 10:50 2 12/11/22 10:40 2 12/11/22 10:30 2 12/11/22 10:20 2 12/11/22 10:10 2 12/11/22 10:00 2 12/11/22 09:50 3 12/11/22 09:40 3 12/11/22 09:30 4 12/11/22 09:20 6 12/11/22 09:10 8 12/11/22 06:00 Pain Intensity Abdomen: Pain Intensity: 4 Transfer of Care Handoff Completed per policy Notes Mental Status: alert / awake / arousable and participated in evaluation Nausea / Vomiting: adequately controlled Pain: adequately controlled Airway Patency, RR, SpO2: stable & adequate BP & HR: stable & adequate Hydration State: stable & adequate Anesthetic Complications: no major complications apparent and Pt Satisfied with anesthetic care
[2022-12-11] MEDS ORDERED: HYDROCODONE/ACETAMOPHEN 5/325MG TAB PO PRN (11:23)
[2022-12-11] MEDS: LACTATED RINGER'S 1,000 ML IV SCH ×2 (11:32→20:07)
[2022-12-11] MEDS ORDERED: ACETAMINOPHEN 1,000 MG/100 ML VIAL IV SCH (12:00)
[2022-12-11] MEDS: MoRPHine SULFATE 4 MG/ML 1 ML CARP\\VIAL IV PRN ×2 (14:20→23:34)
[2022-12-11] MEDS ORDERED: ACETAMINOPHEN 1,000 MG/100 ML VIAL IV PRN (18:00)
[2022-12-11] MEDS: HYDROCODONE/ACETAMOPHEN 5/325MG TAB PO PRN (18:28)
[2022-12-12] MEDS: LACTATED RINGER'S 1,000 ML IV SCH (05:42)
[2022-12-12] MEDS ORDERED: LEVOTHYROXINE SODIUM 25 MCG TABLET PO SCH (06:30)
[2022-12-12 06:42] LABS: Basophils # (auto) 0.04 K/uL (0-0.2); Basophils % (auto) 0.4 %; Eosinophils # (auto) 0.01 K/uL (0-0.50); Eosinophils % (auto) 0.1 %; Hematocrit (blood only) 38.9 % (37.0-47.0); Hemoglobin 13.1 g/dl (12.0-16.0); Immature Granulocytes # (auto) 0.12 K/uL (0.01-0.20); Immature Granulocytes % (auto) 1.1 %; Lymphocytes # (auto) 1.98 K/uL (1.2-3.4); Lymphocytes % (auto) 17.9 %; Mean Corpuscular Hemoglobin 30.8 pg (25.0-34.0); Mean Corpuscular Hgb Conc 33.7 g/dL (32.0-36.0); Mean Corpuscular Volume 91.5 fL (80.0-100.0); Mean Platelet Volume 9.7 fL (9.4-12.4); Monocytes % (auto) 10.8 %; Neutrophils # (auto) 7.73 K/uL (1.40-6.50); Neutrophils % (auto) 69.7 %; Platelet Count 274 K/uL (130-400); RDW Coefficient of Variation 13.2 % (11.5-14.5); RDW Standard Deviation 43.7 fL (36.4-46.3); Red Blood Count 4.25 M/uL (4.20-5.40); White Blood Count 11.08 K/ul (4.8-10.8)
[2022-12-12 06:53] LABS: BUN Creatinine Ratio 12.3 (10-20); Calcium 9.1 mg/dl (8.6-10.3); Creatinine Clr Calc Pharmacy 64.3 ml/min; Est GFR (African American) 102.9 ml/min; Est GFR (Non-African American) 88.8 ml/min
[2022-12-12] MEDS: HYDROCODONE/ACETAMOPHEN 5/325MG TAB PO PRN (08:20)
[2022-12-12] MEDS ORDERED: PANTOprazole 40 MG TAB PO SCH (09:00)
--- NOTE | 2022-12-12 10:53 | Surgery Progress Note ---
Date of Service December 12, 2022 Assessment & Plan (1) Hiatal hernia: Plan: POD#1 hiatal hernia repair with toupet fundoplication WBC 11, Hbg 13. Vitals are stable Patient feeling well overall. Pain controlled. tolerating liquid diet She is stable for discharge to home Recommend a liquidy diet over the next couple of weeks and will see her in the office within 1-2 weeks for follow up with Dr. Beard as above. doing well ok for d/c instructions reviewed. Admission and Anticipated Discharge Date Admission Date: December 11, 2022 Subjective Patient reports feeling better than yesterday. She is tolerating clears without nausea/vomiting. Pain is controlled. Physical Exam Physical Exam: awake/alert, no distress Respiratory: normal respiratory effort Gastrointestinal (Abdomen): Inspection/Auscultation: + abdominal surgical incision (with dermabond) Percussion/Palpation: abdomen soft Results & Data Vital Signs (Past 12 Hours) Vital Signs Temp Pulse Pulse Resp BP Pulse Ox O2 Del Method 12/12/22 07:53 36.7 C 85 14 158/78 H 95 Room Air 12/12/22 03:16 36.9 C 91 H 18 143/69 H 94 Room Air 12/11/22 23:22 36.8 C 97 H 16 156/82 H 94 Room Air PG Care Time/CCT Total # of Minutes Spent Total Time Spent with Patient: Total time spent is greater than 50% in coordination of care (as documented) at patient's floor/unit and/or counseling patient: Coding Level of Care Code 91260 Post Operative Follow-Up Diagnoses Hiatal hernia K44.9
--- NOTE | 2022-12-15 15:22 | Discharge Summary ---
Date of Service December 12, 2022 Principal Diagnosis hiatal hernia repair Discharge Exam awake/alert, no distress Respiratory normal respiratory effort Gastrointestinal (Abdomen) Inspection/Auscultation: + abdominal surgical incision (with dermabond) Percussion/Palpation: abdomen soft Discharge Data Allergies Allergy/AdvReac Type Severity Reaction Status Date / Time fentanyl Allergy Intermediate RASH Verified 12/11/22 05:48 midazolam Allergy Intermediate RASH Verified 12/11/22 05:48 oxycodone AdvReac Intermediate "Makes me Verified 12/11/22 05:48 feel goofy and sick to my stomach" cefdinir AdvReac Mild Gastrointestinal Verified 12/11/22 05:48 Upset Tetracyclines AdvReac Mild Gastrointestinal Verified 12/11/22 05:48 Upset Procedures Performed Operation Date: 12/11/22 07:15 Actual Procedures p Laparoscopic Hiatal Hernia, Fundoplication, gastropexy.(Not Applicable) - Blair Beard, DO Hospital Course (1) Hiatal hernia: This is a 77yF who presented to the [facility] on 12/11/22 for elective repair of her hiatal hernia along with toupet fundoplication with Dr. Beard. The patient to lerated the procedure well, see op note for full details. The patient recovered in the PACU and was transferred to the med/surg floor in stable condition. She was given a clear liquid diet and remained on maintenance IVF POD#0. Pain controlled with prn IV and PO medications and anti-emetics were ordered as needed. On POD#1 the patient reported her pain was manageable on current pain regimen. She was tolerating clear liquids without any nausea/vomiting. She was able to ambulate without issues. She was deemed stable for discharge to home on 4 on a soft/liquidy diet. She was instructed to follow up in clinic within 2 weeks. Total Time Total Time Spent Total Time Spent (In Minutes): 10 Discharge Plan Discharge Items Patient Disposition: Home - Self-Care Reason For Visit: Hiatal Hernia Discharge Diagnosis: laparoscopic hiatal hernia repair Activity: Per Instructions section Lifting: No more than 10 pounds Bathing Comment: may shower starting 12/12/22; no soaking in tubs/pools x2 weeks Exercise/Sports: Wait until after follow-up appointment Driving/Machine Use: no driving while taking narcotics for pain Non-emergency contact: Surgeon Call non-emergency contact if: you have any medication questions, your symptoms worsen, your pain is not controlled, your pain is concerning for you, you have a fever, your temperature is above 101.5, your wound has increased redness, your wound has increased drainage and your wound pain has increased Follow-up/Referrals: Blair Beard, DO [Surgeon] - (Call to schedule follow up in clinic within 1 week) Dennise Martinez MD [Primary Care Provider] - Diet: Other - See Diet Comment Addtl Attending Provider Instructions: Please follow diet instructions as reviewed with you by Dr. Beard. A soft/liquidy diet and things that can be eaten with a spoon until you see him in the office. Pending Studies at Discharge: No Stand-Alone Forms: My [facility], Pain - Opioid Pain Management Medications and DC Order Prescriptions: New hydrocodone-acetaminophen 5-325 mg tablet 1 - 2 tab PO .q4h- q6h PRN (Reason: pain, for initial therapy, max 6 tabs per day ) Qty: 15 0RF ondansetron 4 mg tablet,disintegrating 4 mg PO Q8H PRN (Reason: nausea and vomiting) Qty: 20 0RF Continued levothyroxine 25 mcg tablet 25 mcg PO DAILYBB Qty: 90 3RF losartan 25 mg tablet 25 mg PO HS Qty: 90 3RF potassium chloride [Klor-Con M20] 20 mEq tablet,ER particles/crystals 40 meq PO QAM Qty: 180 3RF pravastatin 20 mg tablet 20 mg PO HS Qty: 90 3RF hydrochlorothiazide 25 mg tablet 25 mg PO QAM Qty: 90 3RF multivitamin tablet 1 tab PO QAM cholecalciferol (vitamin D3) 1,000 unit (25 mcg) tablet 1,000 unit PO QAM Move Free Alerts Health 750 mg-100 mg- 1.65 mg-108 mg tablet 1 tab PO QAM famotidine [Pepcid AC] 10 mg tablet 10 mg PO QPM meclizine 25 mg tablet 25 mg PO TID PRN (Reason: dizziness) Qty: 60 0RF docusate sodium 100 mg capsule 100 mg PO BID PRN (Reason: Constipation) calcium carbonate [Calcium 600] 600 mg calcium (1,500 mg) Tablet 600 mg PO QAM pantoprazole 40 mg tablet,delayed release (/EC) 40 mg PO QAM Discharge Orders: Discharge Order (Routine); Ordered 12/12/22 Ordered By: Leticia Rodriguez Admission Data Admit Date/Time: 12/11/22 09:10 Attending Provider: Blair Beard Admit Provider: Blair Beard Primary Care Provider: Dennise Martinez Other Interventions: Discharge Summary Assessment (RN) Last Done: 12/12/22 10:56 Coding Level of Care Code 78783 IN/OBS DISCH 30 MIN/LESS Diagnoses Hiatal hernia K44.9
== END 2022-12-12 12:02 | disposition home or self-care (01) ==
LOC: 3W 05:18 → ASU 05:18 → 3W 20:06

== ENCOUNTER 2023-04-23 18:05 | Observation (INO) ==
[2023-04-23] MEDS ORDERED: SODIUM CHLORIDE 0.9% 1,000 ML IV SCH (18:30)
--- NOTE | 2023-04-23 18:50 | Emergency Department Note ---
Impression & Plan Syncope, PAF (paroxysmal atrial fibrillation) ED Provider Note NAME: CURRY SOTO AGE: 77 SEX: F : 1945 ARRIVES VIA: Ambulance INFORMANT: Patient, the patient's family ED PROVIDER(S): Uzair Vera DO CHIEF COMPLAINT: Syncope HPI: The patient is a 77-year-old female who presented to the emergency department for an evaluation of syncope. The patient was sitting at a table with her daughter. She had an episode where she became unresponsive. She was not answering questions. The patient was felt to have had a syncopal episode. She had no postictal phase. There was no seizure. She states that she has not been feeling well over the course the last few weeks. She states that she has been feeling very tired. She denies having any chest pain or difficulty breathing. She denies having any nausea or vomiting. The patient has a history of atrial fibrillation. She does not take blood thinners. ROS: See above HPI for pertinent positives & negatives. A total of 10 systems reviewed and were otherwise negative. PAST MEDICAL HISTORY: See Below PAST SURGICAL HISTORY: See Below FAMILY HISTORY: See Below SOCIAL HISTORY: See Below HOME MEDICATIONS: See Below ALLERGIES: See Below VITALS: See Below PHYSICAL EXAMINATION: GENERAL: Patient is awake alert in no acute distress patient is resting comfo rtably and showing no signs of anxiety EYES: The conjunctivae are clear. The pupils are round and reactive. EARS, NOSE, MOUTH AND THROAT: The nose is without any evidence of any deformity. Mucous membranes are moist. Tongue is midline. NECK: The neck is nontender and supple. RESPIRATORY: Normal respiratory effort is noted there is no evidence of wheezing rhonchi or rales CARDIOVASCULAR: Irregular and tachycardic heart sounds were noted auscultation. There is no definite murmur. GASTROINTESTINAL: The abdomen is soft. Abdomen is nontender. MUSCULOSKELETAL/EXTREMITIES: There is no evidence of gross deformity full range of motion is noted in the hips and shoulders. SKIN: There is no obvious evidence of any rash. There are no petechiae, pallor or cyanosis noted. NEUROLOGIC: Patient is awake alert and oriented x3. Strength is symmetric. Speech was clear. MEDICAL DECISION MAKING: The patient is a 77-year-old female who presented to the emergency department with her family for an evaluation of syncopal episode. The patient had a period of unresponsiveness. There is no postictal phase. The patient was found to be in atrial fibrillation upon arrival to the emergency department. During her time in the emergency department she did not revert back to sinus rhythm. I discussed the patient's laboratory and radiographic studies with her. Given her findings today she may require further work-up including formal cardiology evaluation. She has been having symptoms intermittently. This does not appear to be her first episode of atrial fibrillation given her clinical findings. For this reason I discussed her condition with the on-call [facility] hospitalist. They have agreed to evaluate the patient in the emergency department for further management and disposition. Triage Nursing notes reviewed. Prior medical records reviewed Vital Signs: reviewed and remarkable for elevated blood pressure. Differential diagnosis: Vasovagal event, dehydration, infection, hypoglycemia, electrolyte abnormalities, cardiac sources, intracerebral event, pulmonary embolism, seizure, toxicologic, neurologic, as well as other pathologies. ER treatment provided: See below Diagnostics interpreted by me: ECG: EKG was obtained in the emergency department. My interpretation is atrial fibrillation at 113 bpm. Rapid ventricular response was noted. There were no PVCs. This was compared to from November 02, 2022. Sinus rhythm has been replaced with atrial fibrillation. A second EKG was obtained in the emergency department. My interpretation is sinus rhythm at 91 bpm. PACs were noted. There was no PVCs. Sinus rhythm has replaced atrial fibrillation compared to earlier tracing. Cardiac Monitoring: An order was placed for continuous cardiac monitoring. The monitor shows a rate of 89 bpm with sinus rhythm. Laboratory studies: As stated above and show below. Imaging studies: See below. Radiographic imaging was reviewed by myself Consultation(s): I discussed the patient's condition with Dr. Lechuga who is on-call for the [facility] group. Past Med/Surg History Medical History Anxiety Brain aneurysm 3mm per 06/2022 head CTA, saw neuro (Rose Valenzuela) 01/2023; was referred to neuro surgeon at [facility], has not followed up yet Diverticulosis of colon Dysphagia Chronic issue since medication change (only occurs when swallowing large potassium pills) GERD (gastroesophageal reflux disease) Hyperlipidemia Hypertension Hypothyroidism Insomnia Osteopenia after menopause Scoliosis Seasonal allergies Shoulder pain Right steroid injection (Dr. Pulliam 03/2023) Surgical History H/O: hysterectomy TVH, Anterior colporrhaphy, Biat uterosacral ligament vag vault suspension, cystoscopy (2019) History of anesthesia reaction "difficulty waking" History of bladder suspension procedure History of colonoscopy History of repair of hiatal hernia Laparoscopic Repair Hiatal Hernia, Partial Fundoplication, gastropexy (): Grade view 1, Glidescope#3, ETT 7.0, atraumatic x1 at [facility] History of tooth extraction Status post trigger finger release R/L thumbs Family History Father Stroke syndrome Sister Diabetes Hypertension Brother Coronary heart disease Macular degeneration Mother Dementia Other No family history of adverse response to anesthesia Denies family history of Ovarian cancer Prostate cancer Myocardial infarction Breast cancer Colorectal cancer Social History Smoking Status: Never smoker Second Hand Exposure: No; Do You Dip or Chew Tobacco: No; Hx Alcohol Use: Yes Alcohol Intake Frequency: Monthly or Less Hx Substance Use: No Preferred Language: Albanian Communication Ability: Effective Visual Impairment: Limited Hearing Ability: Normal Masking Machine Operator Required: No Beliefs That Will Affect Care: None marital status: Current Living Situation: Spouse current 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: employed and retired 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 How many Children do You have: 2 Feels Safe at Home: Yes Childhood Exposure to Second-Hand Smoke: Yes Diet: Soft Diet Comment: Due to surgery caffeine: Yes (Coffee and tea) during the past year weight has: remained stable Dental Care, Regularly: Yes Physical Activity Frequency: Daily Seatbelt Use: always Sunscreen Use: Yes Assistive Devices: Glasses Allergies Allergies Allergy/AdvReac Type Severity Reaction Status Date / Time fentanyl Allergy Intermediate Rash Verified 04/21/23 09:45 midazolam Allergy Intermediate Rash Verified 04/21/23 09:45 oxycodone AdvReac Intermediate Feel Verified 04/21/23 09:45 "goofy" and "sick to my stomach" cefdinir AdvReac Mild Gastrointestinal Verified 04/21/23 08:50 Upset Tetracyclines AdvReac Mild Gastrointestinal Verified 04/21/23 08:50 Upset Home Meds Home Medications Medication Instructions Recorded Confirmed multivitamin 1 tab PO QAM 03/21/19 04/23/23 cholecalciferol (vitamin D3) 25 1,000 unit PO QAM 05/30/19 04/23/23 mcg (1,000 unit) tablet glucosam 750 mg-chondroi 100 1 tab PO QAM 05/30/19 04/23/23 mg-hyalur 1.65 mg-CF borate 108 mg tablet (Move Free [employer]) calcium carbonate 600 mg calcium 600 mg PO QAM 11/04/21 04/23/23 (1,500 mg) tablet (Calcium) docusate sodium 100 mg capsule 100 mg PO BID 02/27/22 04/23/23 famotidine 10 mg tablet (Pepcid AC) 10 mg PO QPM 11/25/22 04/23/23 pantoprazole 40 mg tablet,delayed 40 mg PO QAM 12/02/22 04/23/23 release Previous Rx's Medication Instructions Recorded levothyroxine 25 mcg tablet 25 mcg PO DAILYBB #90 tabs 08/26/22 losartan 25 mg tablet 25 mg PO HS #90 tabs 08/26/22 potassium chloride 20 mEq 40 meq PO QAM #180 tabs 08/26/22 tablet,extended release(part/cryst) (Klor-Con M) pravastatin 20 mg tablet 20 mg PO HS #90 tabs 08/26/22 hydrochlorothiazide 25 mg tablet 25 mg PO QAM #90 tabs 09/02/22 meclizine 25 mg tablet 25 mg PO TID PRN dizziness #60 tabs 11/07/22 ondansetron 4 mg disintegrating 4 mg PO Q8H PRN nausea and 12/12/22 tablet vomiting #20 tabs Results & Data (ED) Vital Signs Vital Signs - 24 hr 04/23/23 18:12 04/23/23 18:12 04/23/23 18:45 Temperature 36.7 C Temperature Source Temporal Artery Scan Pulse Rate 120 H Pulse Rate [Apical] Respiratory Rate 20 Blood Pressure 139/92 Blood Pressure [Left Arm] Blood Pressure Mean 107 Blood Pressure Mean [Left Arm] Pulse Oximetry 97 95 Oxygen Delivery Method Room Air Room Air Room Air Sepsis Recent Fever Within 48 Hours No Sepsis New/Unexplained Change in Mental Status N/A Sepsis Action Taken by Nursing No Action Required 04/23/23 18:19 04/23/23 20:21 04/23/23 20:56 Temperature Temperature Source Pulse Rate 98 H 92 H Pulse Rate [Apical] 108 H Respiratory Rate 20 18 Blood Pressure 135/90 Blood Pressure [Left Arm] 135/90 Blood Pressure Mean 105 Blood Pressure Mean [Left Arm] 105 Pulse Oximetry 96 97 Oxygen Delivery Method Room Air Room Air Sepsis Recent Fever Within 48 Hours Sepsis New/Unexplained Change in Mental Status Sepsis Action Taken by Nursing 04/23/23 22:17 04/23/23 22:27 Temperature Temperature Source Pulse Rate 91 H Pulse Rate [Apical] 103 H Respiratory Rate 20 Blood Pressure Blood Pressure [Left Arm] 152/89 H Blood Pressure Mean Blood Pressure Mean [Left Arm] 110 Pulse Oximetry 97 Oxygen Delivery Method Room Air Sepsis Recent Fever Within 48 Hours Sepsis New/Unexplained Change in Mental Status Sepsis Action Taken by Skilled Nursing Medications Current Medication List: was personally reviewed by me Laboratory Data Attestation: I reviewed the patient's lab results. 04/23/23 18:42 04/23/23 18:26 Lab Results 04/23/23 04/23/23 04/23/23 Range/Units 18:26 18:26 18:26 WBC (4.8-10.8) K/ul RBC (4.20-5.40) M/uL Hgb (12.0-16.0) g/dl Hct (37.0-47.0) % MCV (80.0-100.0) fL MCH (25.0-34.0) pg MCHC (32.0-36.0) g/dL RDW Std Deviation (36.4-46.3) fL RDW Coeff of Ameya (11.5-14.5) % Plt Count (130-400) K/uL MPV (9.4-12.4) fL Immature Gran % (Auto) % Neut % (Auto) % Lymph % (Auto) % [place] % (Auto) % Eos % (Auto) % Baso % (Auto) % Neut # (Auto) (1.40-6.50) K/uL Lymph # (Auto) (1.20-3.40) K/uL [place] # (Auto) (0.11-0.59) K/uL Eos # (Auto) (0.00-0.50) K/uL Baso # (Auto) (0.00-0.20) K/uL Immature Gran # (Auto) (0.01-0.20) K/uL PT 11.3 (9.0-12.0) Seconds INR 1.0 (0.9-1.1) APTT 24.3 (21.0-31.0) Seconds PTT Ratio 0.9 Sodium 133 L (136-145) mmol/L Potassium 3.5 (3.5-5.1) mmol/L Chloride 99 (98-107) mmol/L Carbon Dioxide 26 (21-32) mmol/L Anion Gap 8 (3-11) BUN 13 (6-23) mg/dl Creatinine 0.57 L (0.6-1.2) mg/dl Est Cr Clr Drug Dosing 72.3 ml/min Est GFR ( Amer) 102.9 ml/min Est GFR (Non-Af Amer) 88.8 ml/min BUN/Creatinine Ratio 22.8 H (10-20) Glucose 106 H (70-99(Fasting)) mg/dl Calcium 8.7 (8.6-10.3) mg/dl Magnesium 2.0 (1.7-2.4) mg/dl Total Bilirubin 0.4 (0.2-1.0) mg/dl AST 23 (13-39) U/L ALT 15 (7-52) U/L Alkaline Phosphatase 50 (34-104) U/L Total Creatine Kinase 30 (26-192) U/L Troponin I High Sens 9.2 (0-14) pg/ml Total Protein 6.8 (6.0-8.3) gm/dl Albumin 4.0 (3.4-5.0) gm/dl Globulin 2.8 (2.5-4.0) gm/dl Albumin/Globulin Ratio 1.4 (0.9-2) Lipase 47 (11-82) U/L TSH 0.013 L (0.300-4.500) uIu/ml Free T4 2.32 H (0.61-1.60) ng/dl Free T3 (2.3-4.2) pg/ml Urine Color Urine Appearance (Clear) Urine pH (4.5-7.5) Ur Specific [place] (1.000-1.030) Urine Protein (Negative) Urine Glucose (UA) (Negative) Urine Ketones (Negative) Urine Blood (Negative) Urine Nitrite (Negative) Urine Bilirubin (Negative) Urine Urobilinogen (Negative) Ur Leukocyte Esterase (Negative) Urine WBC (Auto) (0-5) /hpf Urine RBC (Auto) (0-4) /hpf U Hyaline Cast (Auto) (0-5) /lpf U Epithel Cells (Auto) (0-5) /lpf Urine Bacteria (Auto) (Negative) 04/23/23 04/23/23 04/23/23 Range/Units 18:28 18:42 20:20 WBC 6.21 (4.8-10.8) K/ul RBC 4.66 (4.20-5.40) M/uL Hgb 14.7 (12.0-16.0) g/dl Hct 42.2 (37.0-47.0) % MCV 90.6 (80.0-100.0) fL MCH 31.5 (25.0-34.0) pg MCHC 34.8 (32.0-36.0) g/dL RDW Std Deviation 41.6 (36.4-46.3) fL RDW Coeff of Ameya 12.7 (11.5-14.5) % Plt Count 258 (130-400) K/uL MPV 9.8 (9.4-12.4) fL Immature Gran % (Auto) 2.1 % Neut % (Auto) 61.2 % Lymph % (Auto) 11.4 % Flag[place] % (Auto) 24.6 % Eos % (Auto) 0.2 % Baso % (Auto) 0.5 % Neut # (Auto) 3.80 (1.40-6.50) K/uL Lymph # (Auto) 0.71 L (1.20-3.40) K/uL [place] # (Auto) 1.53 H (0.11-0.59) K/uL Eos # (Auto) 0.01 (0.00-0.50) K/uL Baso # (Auto) 0.03 (0.00-0.20) K/uL Immature Gran # (Auto) 0.13 (0.01-0.20) K/uL PT (9.0-12.0) Seconds INR (0.9-1.1) APTT (21.0-31.0) Seconds PTT Ratio Sodium (136-145) mmol/L Potassium (3.5-5.1) mmol/L Chloride (98-107) mmol/L Carbon Dioxide (21-32) mmol/L Anion Gap (3-11) BUN (6-23) mg/dl Creatinine (0.6-1.2) mg/dl Est Cr Clr Drug Dosing ml/min Est GFR ( Amer) ml/min Est GFR (Non-Af Amer) ml/min BUN/Creatinine Ratio (10-20) Glucose (70-99(Fasting)) mg/dl Calcium (8.6-10.3) mg/dl Magnesium (1.7-2.4) mg/dl Total Bilirubin (0.2-1.0) mg/dl AST (13-39) U/L ALT (7-52) U/L Alkaline Phosphatase (34-104) U/L Total Creatine Kinase (26-192) U/L Troponin I High Sens (0-14) pg/ml Total Protein (6.0-8.3) gm/dl Albumin (3.4-5.0) gm/dl Globulin (2.5-4.0) gm/dl Albumin/Globulin Ratio (0.9-2) Lipase (11-82) U/L TSH (0.300-4.500) uIu/ml Free T4 (0.61-1.60) ng/dl Free T3 4.34 H (2.3-4.2) pg/ml Urine Color Yellow Urine Appearance Clear (Clear) Urine pH 7.5 (4.5-7.5) Ur Specific [place] 1.007 (1.000-1.030) Urine Protein Negative (Negative) Urine Glucose (UA) Negative (Negative) Urine Ketones Trace H (Negative) Urine Blood Trace H (Negative) Urine Nitrite Negative (Negative) Urine Bilirubin Negative (Negative) Urine Urobilinogen Negative (Negative) Ur Leukocyte Esterase Negative (Negative) Urine WBC (Auto) 1-5 (0-5) /hpf Urine RBC (Auto) 0-4 (0-4) /hpf U Hyaline Cast (Auto) 1-5 (0-5) /lpf U Epithel Cells (Auto) 0-5 (0-5) /lpf Urine Bacteria (Auto) Negative (Negative) Administered Medications Discontinued Medications Sodium Chloride (Nss) 1,000 mls @ 999 mls/hr IV .[id number] MONSE Stop: 04/23/23 19:30 Last Infusion: 04/23/23 19:52 Dose: 0 mls/hr Documented By: Admin: 04/23/23 18:50 Dose: 999 mls/hr Documented By: MMG Imaging Data Attestation: I personally reviewed and interpreted this imaging study as follows: My Impression: CT of the brain was obtained in the emergency department. My interpretation is no intracranial hemorrhage or mass effect, final report below. 1 view chest x-ray was obtained in the emergency department. My interpretation is no free air or definite infiltrate, this was compared to a chest x-ray from November 02, 2022. No changes were noted. Final report pending. Radiologist's Impression: Head CT 04/23/23 18:48 Exam(s): CT HEAD Without Contrast EXAM: CT Head Without Intravenous Contrast CLINICAL HISTORY: Reason for exam: syncope, AMS. TECHNIQUE: Axial computed tomography images of the head/brain without intravenous contrast. CTDI is 38.55 mGy and DLP is 624.41 mGy-cm. Automated exposure control was utilized for the study. A dose lowering technique was utilized adhering to the principles of ALARA. COMPARISON: No relevant prior studies available. FINDINGS: No acute intracranial hemorrhage. No midline shift or mass effect. The territorial mahoney-white matter differentiation is maintained throughout. Age-related cerebral volume loss. Periventricular and subcortical white matter hypoattenuation, consistent with chronic microangiopathy. The visualized orbits appear grossly unremarkable. The calvarium is intact. The visualized paranasal sinuses and mastoid air cells are grossly clear. IMPRESSION: No acute intracranial hemorrhage, midline shift, or mass effect. Electronically signed by: Sixto Reich MD 04/23/23 20:11 PM Discharge Plan Visit Data Chief Complaint: Syncope Stated Complaint: SYNCOPE, NEW ONSET AFIB ED Provider: Uzair Vera Discharge Problem: Syncope, PAF (paroxysmal atrial fibrillation) Patient Disposition: Being Evaluated by Hospitalist Forms Stand Alone Forms: My [facility] Prescriptions Prescriptions: No Action levothyroxine 25 mcg tablet 25 mcg PO DAILYBB Qty: 90 3RF losartan 25 mg tablet 25 mg PO HS Qty: 90 3RF potassium chloride [Klor-Con M20] 20 mEq tablet,ER particles/crystals 40 meq PO QAM Qty: 180 3RF pravastatin 20 mg tablet 20 mg PO HS Qty: 90 3RF hydrochlorothiazide 25 mg tablet 25 mg PO QAM Qty: 90 3RF multivitamin tablet 1 tab PO QAM cholecalciferol (vitamin D3) 1,000 unit (25 mcg) tablet 1,000 unit PO QAM [employer] 750 mg-100 mg- 1.65 mg-108 mg tablet 1 tab PO QAM famotidine [Pepcid AC] 10 mg tablet 10 mg PO QPM meclizine 25 mg tablet 25 mg PO TID PRN (Reason: dizziness) Qty: 60 0RF docusate sodium 100 mg capsule 100 mg PO BID calcium carbonate [Calcium 600] 600 mg calcium (1,500 mg) Tablet 600 mg PO QAM pantoprazole 40 mg tablet,delayed release (DR/EC) 40 mg PO QAM ondansetron 4 mg tablet,disintegrating 4 mg PO Q8H PRN (Reason: nausea and vomiting) Qty: 20 0RF Referrals Referrals: Dennise Martinez MD [Primary Care Provider] -
[2023-04-23 19:00] LABS: Albumin Globulin Ratio 1.4 (0.9-2); BUN Creatinine Ratio 22.8 (10-20); Bilirubin,Total 0.4 mg/dl (0.2-1.0); Calcium 8.7 mg/dl (8.6-10.3); Creatinine Clr Calc Pharmacy 72.3 ml/min; Est GFR (African American) 102.9 ml/min; Est GFR (Non-African American) 88.8 ml/min; Globulin 2.8 gm/dl (2.5-4.0); Potassium 3.5 mmol/L (3.5-5.1); Total Protein 6.8 gm/dl (6.0-8.3)
[2023-04-23 19:04] LABS: Basophils # (auto) 0.03 K/uL (0.00-0.20); Basophils % (auto) 0.5 %; Eosinophils # (auto) 0.01 K/uL (0.00-0.50); Eosinophils % (auto) 0.2 %; Hematocrit (blood only) 42.2 % (37.0-47.0); Hemoglobin 14.7 g/dl (12.0-16.0); Immature Granulocytes # (auto) 0.13 K/uL (0.01-0.20); Immature Granulocytes % (auto) 2.1 %; Lymphocytes # (auto) 0.71 K/uL (1.20-3.40); Lymphocytes % (auto) 11.4 %; Mean Corpuscular Hemoglobin 31.5 pg (25.0-34.0); Mean Corpuscular Hgb Conc 34.8 g/dL (32.0-36.0); Mean Corpuscular Volume 90.6 fL (80.0-100.0); Mean Platelet Volume 9.8 fL (9.4-12.4); Monocytes # (auto) 1.53 K/uL (0.11-0.59); Monocytes % (auto) 24.6 %; Neutrophils % (auto) 61.2 %; Platelet Count 258 K/uL (130-400); RDW Coefficient of Variation 12.7 % (11.5-14.5); RDW Standard Deviation 41.6 fL (36.4-46.3); Red Blood Count 4.66 M/uL (4.20-5.40); White Blood Count 6.21 K/ul (4.8-10.8)
[2023-04-23 19:06] LABS: Troponin I High Sensitivity 9.2 pg/ml (0-14)
[2023-04-23 19:12] LABS: Partial Thromboplastin Ratio 0.9; Partial Thromboplastin Time 24.3 Seconds (21.0-31.0); Prothrombin Time 11.3 Seconds (9.0-12.0)
[2023-04-23 19:15] LABS: Thyroid Stimulating Hormone 0.013 uIu/ml (0.300-4.500)
--- NOTE | 2023-04-23 20:12 | CT Scan Report ---
Exam(s): CT HEAD Without Contrast EXAM: CT Head Without Intravenous Contrast CLINICAL HISTORY: Reason for exam: syncope, AMS. TECHNIQUE: Axial computed tomography images of the head/brain without intravenous contrast. CTDI is 38.55 mGy and DLP is 624.41 mGy-cm. Automated exposure control was utilized for the study. A dose lowering technique was utilized adhering to the principles of ALARA. COMPARISON: No relevant prior studies available. FINDINGS: No acute intracranial hemorrhage. No midline shift or mass effect. The territorial mahoney-white matter differentiation is maintained throughout. Age-related cerebral volume loss. Periventricular and subcortical white matter hypoattenuation, consistent with chronic microangiopathy. The visualized orbits appear grossly unremarkable. The calvarium is intact. The visualized paranasal sinuses and mastoid air cells are grossly clear. IMPRESSION: No acute intracranial hemorrhage, midline shift, or mass effect. Electronically signed by: Sixto Reich MD 04/23/23 20:11 PM
[2023-04-23 20:15] LABS: T4 Free Thyroxine 2.32 ng/dl (0.61-1.60)
[2023-04-23 20:44] LABS: Appearance Urine Clear (Clear); Bacteria Urine Automated Negative (Negative); Bilirubin Urine Negative (Negative); Blood Urine Trace (Negative); Color Urine Yellow; Epithelial Cell Urine Auto 0-5 /lpf (0-5); Glucose Urine UA Negative (Negative); Ketones Urine Trace (Negative); Leukocyte Esterase Urine Negative (Negative); Nitrite Urine Negative (Negative); Protein Urine Negative (Negative); RBC Urine Automated 0-4 /hpf (0-4); Specific Gravity Urine 1.007 (1.000-1.030); Urobilinogen Urine Negative (Negative); pH Urine 7.5 (4.5-7.5)
--- NOTE | 2023-04-23 22:06 | History & Physical Report ---
Date of Service April 23, 2023 Assessment & Plan (1) Syncope: Plan: 77yo female presenting with syncopal event. New atrial fibrillation noted on initial EKG, possible cause of syncopal event. -Admit to medical with telemetry -Check 2D echo (2) Atrial fibrillation: Plan: Patient with atrial fibrillation noted on initial EKG. No history of prior. Blood pressure is stable. Electrolytes largely normal. Patient with abnormal thyroid function testing - TSH low at 0.013 and T4 high at 2.32. She is on Synthroid 25mcg po daily which is a stable unchanged dose. No new medications or recent illness. Hyperthyroidism - with recent heat intolerance, weight loss and new atrial fibrillation. -Check 2D echo -Check T3 -Check thyroid ultrasound (3) Hypothyroidism: Plan: With hyperthyroidism. Patient is on stable dose of Synthroid 25mcg po daily. -Hold synthroid -Check T3 -Thyroid ultrasound -Initiate propranolol 10mg po TID (4) Hypertension: Plan: Blood pressure mildly elevated -Continue Losartan 25mg po daily -Hold HCTZ in setting of mild hyponatremia with Ng=373 (5) Hyperlipidemia: Plan: Chronic. Stable -Continue Pravastatin 20mg po qHS (6) GERD (gastroesophageal reflux disease): Plan: Chronic. Stable. -Continue Protonix 40mg po daily (7) Brain aneurysm: Plan: Patient with 3mm aneurysm discovered on brain imaging 06/2022 on CTA. She was seen by Neurology in January 2023 and is to followup with Neurosurgery at [facility] at some point. She has not yet been seen by Neurosurgery. She is scheduled to have repeat brain imaging in June. Denies headache, visual changes, focal deficits. History of Present Illness Chief Complaint: syncope Primary Care Provider: Dennise Martinez MD Genny Corona is a 77yo female with history of HTN, HLP, GERD and Hypothyroidism presenting after an episode of syncope. Patient was sitting at the table with her daughter tonight around 17:15 when when she slumped forward and became unresponsive. She was out for approximately 45 seconds then woke up. Her daughter says that she was initially slightly confused but then returned to normal quickly. Patient does not recall the event. She denies chest pain, palpitations, dizziness or lightheadedness. No report of fever or chills, cough, SOB or headache. Patient with no prior syncopal events. Additionally, patient endorses some heat intolerance for the last several weeks as well as weight loss of approximately 25# since having a hiatal hernia repair surgery in November 2022. She has been eating much less since her surgery. Today she had a couple of crackers with peanut butter and chocolate milk only. Upon arrival she was found to be in atrial fibrillation with RVR, no history of such. Repeat EKG with sinus rhythm with PACs ER Course: NSS x 1L Allergies Allergy/AdvReac Type Severity Reaction Status Date / Time fentanyl Allergy Intermediate Rash Verified 04/21/23 09:45 midazolam Allergy Intermediate Rash Verified 04/21/23 09:45 oxycodone AdvReac Intermediate Feel Verified 04/21/23 09:45 "goofy" and "sick to my stomach" cefdinir AdvReac Mild Gastrointestinal Verified 04/21/23 08:50 Upset Tetracyclines AdvReac Mild Gastrointestinal Verified 04/21/23 08:50 Upset Home Medications Medication Instructions Recorded Confirmed Type multivitamin 1 tab PO QAM 03/21/19 04/23/23 History cholecalciferol (vitamin D3) 25 1,000 unit PO QAM 05/30/19 04/23/23 History mcg (1,000 unit) tablet glucosam 750 mg-chondroi 100 1 tab PO QAM 05/30/19 04/23/23 History mg-hyalur 1.65 mg-CF borate 108 mg tablet ([facility]) calcium carbonate 600 mg calcium 600 mg PO QAM 11/04/21 04/23/23 History (1,500 mg) tablet (Calcium) docusate sodium 100 mg capsule 100 mg PO BID 02/27/22 04/23/23 History levothyroxine 25 mcg tablet 25 mcg PO DAILYBB #90 tabs 08/26/22 04/23/23 Rx losartan 25 mg tablet 25 mg PO HS #90 tabs 08/26/22 04/23/23 Rx potassium chloride 20 mEq 40 meq PO QAM #180 tabs 08/26/22 04/23/23 Rx tablet,extended release(part/cryst) (Klor-Con M) pravastatin 20 mg tablet 20 mg PO HS #90 tabs 08/26/22 04/23/23 Rx hydrochlorothiazide 25 mg tablet 25 mg PO QAM #90 tabs 09/02/22 04/23/23 Rx meclizine 25 mg tablet 25 mg PO TID PRN dizziness #60 tabs 11/07/22 04/23/23 Rx famotidine 10 mg tablet (Pepcid AC) 10 mg PO QPM 11/25/22 04/23/23 History pantoprazole 40 mg tablet,delayed 40 mg PO QAM 12/02/22 04/23/23 History release ondansetron 4 mg disintegrating 4 mg PO Q8H PRN nausea and 12/12/22 04/23/23 Rx tablet vomiting #20 tabs Past Med/Surg History Medical History Anxiety Brain aneurysm 3mm per 06/2022 head CTA, saw neuro (Rose Valenzuela) 01/2023; was referred to neuro surgeon at [facility], has not followed up yet Diverticulosis of colon Dysphagia Chronic issue since medication change (only occurs when swallowing large potassium pills) GERD (gastroesophageal reflux disease) Hyperlipidemia Hypertension Hypothyroidism Insomnia Osteopenia after menopause Scoliosis Seasonal allergies Shoulder pain Right steroid injection (Dr. Pulliam 03/2023) Surgical History H/O: hysterectomy TVH, Anterior colporrhaphy, Biat uterosacral ligament vag vault suspension, cystoscopy (2018) History of anesthesia reaction "difficulty waking" History of bladder suspension procedure History of colonoscopy History of repair of hiatal hernia Laparoscopic Repair Hiatal Hernia, Partial Fundoplication, gastropexy (12/11/22): Grade view 1, Glidescope#3, ETT 7.0, atraumatic x1 at [facility] History of tooth extraction Status post trigger finger release R/L thumbs Family History Father Stroke syndrome Sister Diabetes Hypertension Brother Coronary heart disease Macular degeneration Mother Dementia Other No family history of adverse response to anesthesia Denies family history of Ovarian cancer Prostate cancer Myocardial infarction Breast cancer Colorectal cancer Social History Smoking Status: Never smoker Second Hand Exposure: No; Do You Dip or Chew Tobacco: No; Hx Alcohol Use: Yes Alcohol Intake Frequency: Monthly or Less Hx Substance Use: No Preferred Language: Indian Communication Ability: Effective Visual Impairment: Limited Hearing Ability: Normal Can Closing Machine Operator Required: No Beliefs That Will Affect Care: None marital status: Current Living Situation: Spouse current 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: employed and retired 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 How many Children do You have: 2 Feels Safe at Home: Yes Childhood Exposure to Second-Hand Smoke: Yes Diet: Soft Diet Comment: Due to surgery caffeine: Yes (Coffee and tea) during the past year weight has: remained stable Dental Care, Regularly: Yes Physical Activity Frequency: Daily Seatbelt Use: always Sunscreen Use: Yes Assistive Devices: Glasses Review of Systems Review of Systems: All systems reviewed & are unremarkable except as noted in HPI & below Physical Exam Physical Exam: General: patient resting comfortably, NAD, non-toxic in appearance, AA&O x 4 Skin: warm, dry, intact, no rashes or lesions HEENT: NC/AT, PERRL, EOMI, anicteric sclera, conjunctiva without injection, external ear normal to inspection and nontender, nares patent, moist mucus membranes, dentition intact, no oropharyngeal lesions, neck supple, trachea midline, no LAD, no thyromegaly, goiter, nodules or tenderness, no JVD Heart: +S1/S2, regular with ectopy, tachycardic, no m/r/g Lungs: equal air entry bilaterally, no rales/rhonchi/wheezes Abd: +BS, soft, NT/ND, no masses/organomegaly/ascites Ext: warm, 2+ pulses in UE/LE bilaterally, no clubbing/cyanosis, trace pitting edema Neuro: nonfocal, patient AA&O x 4, speech intact, no facial droop, moving all extremities on command with equal strength 5/5 Results & Data Results & Data Vital Signs (Past 12 Hours) Vital Signs Temp Pulse Pulse Resp BP BP Pulse Ox 04/23/23 20:56 92 H 18 135/90 97 04/23/23 20:21 108 H 20 135/90 96 04/23/23 18:19 98 H 04/23/23 18:45 95 04/23/23 18:12 04/23/23 18:12 36.7 C 120 H 20 139/92 97 O2 Del Method 04/23/23 20:56 Room Air 04/23/23 20:21 Room Air 04/23/23 18:19 04/23/23 18:45 Room Air 04/23/23 18:12 Room Air 04/23/23 18:12 Room Air Laboratory Results Laboratory Results WBC 6.21 K/ul (4.8-10.8) 04/23/23 18:42 RBC 4.66 M/uL (4.20-5.40) 04/23/23 18:42 Hgb 14.7 g/dl (12.0-16.0) 04/23/23 18:42 Hct 42.2 % (37.0-47.0) 04/23/23 18:42 MCV 90.6 fL (80.0-100.0) 04/23/23 18:42 MCH 31.5 pg (25.0-34.0) 04/23/23 18:42 MCHC 34.8 g/dL (32.0-36.0) 04/23/23 18:42 RDW Std Deviation 41.6 fL (36.4-46.3) 04/23/23 18:42 RDW Coeff of Ameya 12.7 % (11.5-14.5) 04/23/23 18:42 Plt Count 258 K/uL (130-400) 04/23/23 18:42 MPV 9.8 fL (9.4-12.4) 04/23/23 18:42 Immature Gran % (Auto) 2.1 % 04/23/23 18:42 Neut % (Auto) 61.2 % 04/23/23 18:42 Lymph % (Auto) 11.4 % 04/23/23 18:42 [place] % (Auto) 24.6 % 04/23/23 18:42 Eos % (Auto) 0.2 % 04/23/23 18:42 Baso % (Auto) 0.5 % 04/23/23 18:42 Neut # (Auto) 3.80 K/uL (1.40-6.50) 04/23/23 18:42 Lymph # (Auto) 0.71 K/uL (1.20-3.40) L 04/23/23 18:42 [place] # (Auto) 1.53 K/uL (0.11-0.59) H 04/23/23 18:42 Eos # (Auto) 0.01 K/uL (0.00-0.50) 04/23/23 18:42 Baso # (Auto) 0.03 K/uL (0.00-0.20) 04/23/23 18:42 Immature Gran # (Auto) 0.13 K/uL (0.01-0.20) 04/23/23 18:42 PT 11.3 Seconds (9.0-12.0) 04/23/23 18:26 INR 1.0 (0.9-1.1) 04/23/23 18:26 APTT 24.3 Seconds (21.0-31.0) 04/23/23 18:26 PTT Ratio 0.9 04/23/23 18:26 Sodium 133 mmol/L (136-145) L 04/23/23 18:26 Potassium 3.5 mmol/L (3.5-5.1) 04/23/23 18:26 Chloride 99 mmol/L (98-107) 04/23/23 18:26 Carbon Dioxide 26 mmol/L (21-32) 04/23/23 18:26 Anion Gap 8 (3-11) 04/23/23 18:26 BUN 13 mg/dl (6-23) 04/23/23 18:26 Creatinine 0.57 mg/dl (0.6-1.2) L 04/23/23 18:26 Est Cr Clr Drug Dosing 72.3 ml/min 04/23/23 18:26 Est GFR ( Amer) 102.9 ml/min 04/23/23 18:26 Est GFR (Non-Af Amer) 88.8 ml/min 04/23/23 18:26 BUN/Creatinine Ratio 22.8 (10-20) H 04/23/23 18:26 Glucose 106 mg/dl (70-99(Fasting)) H 04/23/23 18:26 Calcium 8.7 mg/dl (8.6-10.3) 04/23/23 18:26 Magnesium 2.0 mg/dl (1.7-2.4) 04/23/23 18:26 Total Bilirubin 0.4 mg/dl (0.2-1.0) 04/23/23 18:26 AST 23 U/L (13-39) 04/23/23 18:26 ALT 15 U/L (7-52) 04/23/23 18:26 Alkaline Phosphatase 50 U/L (34-104) 04/23/23 18:26 Total Creatine Kinase 30 U/L (26-192) 04/23/23 18:26 Troponin I High Sens 9.2 pg/ml (0-14) 04/23/23 18:26 Total Protein 6.8 gm/dl (6.0-8.3) 04/23/23 18:26 Albumin 4.0 gm/dl (3.4-5.0) 04/23/23 18:26 Globulin 2.8 gm/dl (2.5-4.0) 04/23/23 18:26 Albumin/Globulin Ratio 1.4 (0.9-2) 04/23/23 18:26 Lipase 47 U/L (11-82) 04/23/23 18:26 TSH 0.013 uIu/ml (0.300-4.500) L 04/23/23 18:26 Free T4 2.32 ng/dl (0.61-1.60) H 04/23/23 18:26 Free T3 4.34 pg/ml (2.3-4.2) H 04/23/23 18:28 Urine Color Yellow 04/23/23 20:20 Urine Appearance Clear (Clear) 04/23/23 20:20 Urine pH 7.5 (4.5-7.5) 04/23/23 20:20 Ur Specific [place] 1.007 (1.000-1.030) 04/23/23 20:20 Urine Protein Negative (Negative) 04/23/23 20:20 Urine Glucose (UA) Negative (Negative) 04/23/23 20:20 Urine Ketones Trace (Negative) H 04/23/23 20:20 Urine Blood Trace (Negative) H 04/23/23 20:20 Urine Nitrite Negative (Negative) 04/23/23 20:20 Urine Bilirubin Negative (Negative) 04/23/23 20:20 Urine Urobilinogen Negative (Negative) 04/23/23 20:20 Ur Leukocyte Esterase Negative (Negative) 04/23/23 20:20 Urine WBC (Auto) 1-5 /hpf (0-5) 04/23/23 20:20 Urine RBC (Auto) 0-4 /hpf (0-4) 04/23/23 20:20 U Hyaline Cast (Auto) 1-5 /lpf (0-5) 04/23/23 20:20 U Epithel Cells (Auto) 0-5 /lpf (0-5) 04/23/23 20:20 Urine Bacteria (Auto) Negative (Negative) 04/23/23 20:[address] 04/23/23 18:48 Exam(s): CT HEAD Without Contrast EXAM: CT Head Without Intravenous Contrast CLINICAL HISTORY: Reason for exam: syncope, AMS. TECHNIQUE: Axial computed tomography images of the head/brain without intravenous contrast. CTDI is 38.55 mGy and DLP is 624.41 mGy-cm. Automated exposure control was utilized for the study. A dose lowering technique was utilized adhering to the principles of ALARA. COMPARISON: No relevant prior studies available. FINDINGS: No acute intracranial hemorrhage. No midline shift or mass effect. The territorial mahoney-white matter differentiation is maintained throughout. Age-related cerebral volume loss. Periventricular and subcortical white matter hypoattenuation, consistent with chronic microangiopathy. The visualized orbits appear grossly unremarkable. The calvarium is intact. The visualized paranasal sinuses and mastoid air cells are grossly clear. IMPRESSION: No acute intracranial hemorrhage, midline shift, or mass effect. Electronically signed by: Sixto Reich MD 04/23/23 20:11 PM ECG Additional Comments: By my interpretation - EKG shows sinus rhythm at 91bpm with PACs, normal axis, LU=354, QRS=76, QNa=071, no acute ischemic changes Prior EKG with atrial fibrillation PG Care Time/CCT Total # of Minutes Spent Total Time Spent with Patient: Total time spent is greater than 50% in coordination of care (as documented) at patient's floor/unit and/or counseling patient: Coding Level of Care Code 46671 INT INP/OBS CARE 3/75MIN Diagnoses Syncope R55 Syncope type: unspecified Atrial fibrillation I48.91 Hypothyroidism E03.9 Hypertension I10 Hyperlipidemia E78.5 GERD (gastroesophageal reflux disease) K21.9 Brain aneurysm I67.1 (1) Syncope Syncope type: unspecified Qualified Code(s): R55 - Syncope and collapse
[2023-04-24] MEDS ORDERED: ACETAMINOPHEN 325 MG TAB PO PRN (01:41)
[2023-04-24] MEDS ORDERED: ONDANSETRON INJ 2 MG/ML 2 ML VIAL IV PRN (01:41)
[2023-04-24] MEDS ORDERED: MECLIZINE HCL 25 MG TAB PO PRN (01:41)
[2023-04-24 02:02] LABS: Phosphorus 3.3 mg/dl (2.5-4.9)
--- NOTE | 2023-04-24 07:16 | XRay Report ---
XR chest 1V portable CLINICAL HISTORY: syncope TECHNIQUE: Single frontal radiograph of the chest was obtained. Comparison: None available at the time of this dictation. FINDINGS: No lines and tubes are seen. The cardiomediastinal silhouette is normal. The lungs are clear. No evid ence of pleural effusion or pneumothorax. IMPRESSION: No acute chest disease. ACT 112: Negative or not required by law. Electronically signed by: Nitish Curry M.D. 04/24/2023 7:14 AM
--- NOTE | 2023-04-24 07:42 | Hospitalist Progress Note ---
Date of Service April 24, 2023 Assessment & Plan (1) Syncope: Plan: 77yo female presenting with syncopal event. New atrial fibrillation noted on initial EKG, possible cause of syncopal event. -Admit to medical with telemetry -Check 2D echo (2) Atrial fibrillation: Plan: Patient with atrial fibrillation noted on initial EKG. No history of prior. Blood pressure is stable. Electrolytes largely normal. Patient with abnormal thyroid function testing - TSH low at 0.013 and T4 high at 2.32. She is on Synthroid 25mcg po daily which is a stable unchanged dose. No new medications or recent illness. Hyperthyroidism - with recent heat intolerance, weight loss and new atrial fibrillation. -Check 2D echo -Check T3 -Check thyroid ultrasound (3) Hypothyroidism: Plan: With hyperthyroidism. Patient is on stable dose of Synthroid 25mcg po daily. -Hold synthroid -Check T3 -Thyroid ultrasound -Initiate propranolol 10mg po TID (4) Hypertension: Plan: Blood pressure mildly elevated -Continue Losartan 25mg po daily -Hold HCTZ in setting of mild hyponatremia with Rn=534 (5) Hyperlipidemia: Plan: Chronic. Stable -Continue Pravastatin 20mg po qHS (6) GERD (gastroesophageal reflux disease): Plan: Chronic. Stable. -Continue Protonix 40mg po daily (7) Brain aneurysm: Plan: Patient with 3mm aneurysm discovered on brain imaging 06/2022 on CTA. She was seen by Neurology in January 2023 and is to followup with Neurosurgery at [facility] at some point. She has not yet been seen by Neurosurgery. She is scheduled to have repeat brain imaging in June. Denies headache, visual changes, focal deficits. Admission and Anticipated Discharge Date Admission Date: April 23, 2023 Results & Data Results & Data Vital Signs (Past 12 Hours) Vital Signs Temp Pulse Pulse Resp BP BP Pulse Ox 04/24/23 02:21 89 04/24/23 01:41 37 C 87 18 129/69 95 04/24/23 00:46 90 21 143/85 H 94 04/23/23 22:27 103 H 20 152/89 H 97 04/23/23 22:17 91 H 04/23/23 20:56 92 H 18 135/90 97 04/23/23 20:21 108 H 20 135/90 96 O2 Del Method 04/24/23 02:21 04/24/23 01:41 Room Air 04/24/23 00:46 04/23/23 22:27 Room Air 04/23/23 22:17 04/23/23 20:56 Room Air 04/23/23 20:21 Room Air Laboratory Results 04/23/23 04/23/23 04/23/23 Range/Units 20:20 18:42 18:28 WBC 6.21 (4.8-10.8) K/ul RBC 4.66 (4.20-5.40) M/uL Hgb 14.7 (12.0-16.0) g/dl Hct 42.2 (37.0-47.0) % MCV 90.6 (80.0-100.0) fL MCH 31.5 (25.0-34.0) pg MCHC 34.8 (32.0-36.0) g/dL RDW Std Deviation 41.6 (36.4-46.3) fL RDW Coeff of Ameya 12.7 (11.5-14.5) % Plt Count 258 (130-400) K/uL MPV 9.8 (9.4-12.4) fL Immature Gran % (Auto) 2.1 % Neut % (Auto) 61.2 % Lymph % (Auto) 11.4 % [place] % (Auto) 24.6 % Eos % (Auto) 0.2 % Baso % (Auto) 0.5 % Neut # (Auto) 3.80 (1.40-6.50) K/uL Lymph # (Auto) 0.71 L (1.20-3.40) K/uL [place] # (Auto) 1.53 H (0.11-0.59) K/uL Eos # (Auto) 0.01 (0.00-0.50) K/uL Baso # (Auto) 0.03 (0.00-0.20) K/uL Immature Gran # (Auto) 0.13 (0.01-0.20) K/uL PT (9.0-12.0) Seconds INR (0.9-1.1) APTT (21.0-31.0) Seconds PTT Ratio Sodium (136-145) mmol/L Potassium (3.5-5.1) mmol/L Chloride (98-107) mmol/L Carbon Dioxide (21-32) mmol/L Anion Gap (3-11) BUN (6-23) mg/dl Creatinine (0.6-1.2) mg/dl Est Cr Clr Drug Dosing ml/min Est GFR ( Amer) ml/min Est GFR (Non-Af Amer) ml/min BUN/Creatinine Ratio (10-20) Glucose (70-99(Fasting)) mg/dl Calcium (8.6-10.3) mg/dl Phosphorus (2.5-4.9) mg/dl Magnesium (1.7-2.4) mg/dl Total Bilirubin (0.2-1.0) mg/dl AST (13-39) U/L ALT (7-52) U/L Alkaline Phosphatase (34-104) U/L Total Creatine Kinase (26-192) U/L Troponin I High Sens (0-14) pg/ml Total Protein (6.0-8.3) gm/dl Albumin (3.4-5.0) gm/dl Globulin (2.5-4.0) gm/dl Albumin/Globulin Ratio (0.9-2) Lipase (11-82) U/L TSH (0.300-4.500) uIu/ml Free T4 (0.61-1.60) ng/dl Free T3 4.34 H (2.3-4.2) pg/ml Urine Color Yellow Urine Appearance Clear (Clear) Urine pH 7.5 (4.5-7.5) Ur Specific [place] 1.007 (1.000-1.030) Urine Protein Negative (Negative) Urine Glucose (UA) Negative (Negative) Urine Ketones Trace H (Negative) Urine Blood Trace H (Negative) Urine Nitrite Negative (Negative) Urine Bilirubin Negative (Negative) Urine Urobilinogen Negative (Negative) Ur Leukocyte Esterase Negative (Negative) Urine WBC (Auto) 1-5 (0-5) /hpf Urine RBC (Auto) 0-4 (0-4) /hpf U Hyaline Cast (Auto) 1-5 (0-5) /lpf U Epithel Cells (Auto) 0-5 (0-5) /lpf Urine Bacteria (Auto) Negative (Negative) 04/23/23 04/23/23 04/23/23 Range/Units 18:26 18:26 18:26 WBC (4.8-10.8) K/ul RBC (4.20-5.40) M/uL Hgb (12.0-16.0) g/dl Hct (37.0-47.0) % MCV (80.0-100.0) fL MCH (25.0-34.0) pg MCHC (32.0-36.0) g/dL RDW Std Deviation (36.4-46.3) fL RDW Coeff of Ameya (11.5-14.5) % Plt Count (130-400) K/uL MPV (9.4-12.4) fL Immature Gran % (Auto) % Neut % (Auto) % Lymph % (Auto) % [place] % (Auto) % Eos % (Auto) % Baso % (Auto) % Neut # (Auto) (1.40-6.50) K/uL Lymph # (Auto) (1.20-3.40) K/uL [place] # (Auto) (0.11-0.59) K/uL Eos # (Auto) (0.00-0.50) K/uL Baso # (Auto) (0.00-0.20) K/uL Immature Gran # (Auto) (0.01-0.20) K/uL PT 11.3 (9.0-12.0) Seconds INR 1.0 (0.9-1.1) APTT 24.3 (21.0-31.0) Seconds PTT Ratio 0.9 Sodium 133 L (136-145) mmol/L Potassium 3.5 (3.5-5.1) mmol/L Chloride 99 (98-107) mmol/L Carbon Dioxide 26 (21-32) mmol/L Anion Gap 8 (3-11) BUN 13 (6-23) mg/dl Creatinine 0.57 L (0.6-1.2) mg/dl Est Cr Clr Drug Dosing 72.3 ml/min Est GFR ( Amer) 102.9 ml/min Est GFR (Non-Af Amer) 88.8 ml/min BUN/Creatinine Ratio 22.8 H (10-20) Glucose 106 H (70-99(Fasting)) mg/dl Calcium 8.7 (8.6-10.3) mg/dl Phosphorus 3.3 (2.5-4.9) mg/dl Magnesium 2.0 (1.7-2.4) mg/dl Total Bilirubin 0.4 (0.2-1.0) mg/dl AST 23 (13-39) U/L ALT 15 (7-52) U/L Alkaline Phosphatase 50 (34-104) U/L Total Creatine Kinase 30 (26-192) U/L Troponin I High Sens 9.2 (0-14) pg/ml Total Protein 6.8 (6.0-8.3) gm/dl Albumin 4.0 (3.4-5.0) gm/dl Globulin 2.8 (2.5-4.0) gm/dl Albumin/Globulin Ratio 1.4 (0.9-2) Lipase 47 (11-82) U/L TSH 0.013 L (0.300-4.500) uIu/ml Free T4 2.32 H (0.61-1.60) ng/dl Free T3 (2.3-4.2) pg/ml Urine Color Urine Appearance (Clear) Urine pH (4.5-7.5) Ur Specific [place] (1.000-1.030) Urine Protein (Negative) Urine Glucose (UA) (Negative) Urine Ketones (Negative) Urine Blood (Negative) Urine Nitrite (Negative) Urine Bilirubin (Negative) Urine Urobilinogen (Negative) Ur Leukocyte Esterase (Negative) Urine WBC (Auto) (0-5) /hpf Urine RBC (Auto) (0-4) /hpf U Hyaline Cast (Auto) (0-5) /lpf U Epithel Cells (Auto) (0-5) /lpf Urine Bacteria (Auto) (Negative) PG Care Time/CCT Total # of Minutes Spent Total Time Spent with Patient: Total time spent is greater than 50% in coordination of care (as documented) at patient's floor/unit and/or counseling patient: Coding Diagnoses Syncope R55 Syncope type: unspecified Atrial fibrillation I48.91 Hypothyroidism E03.9 Hypertension I10 Hyperlipidemia E78.5 GERD (gastroesophageal reflux disease) K21.9 Brain aneurysm I67.1 (1) Syncope Syncope type: unspecified Qualified Code(s): R55 - Syncope and collapse
[2023-04-24 07:51] LABS: Hematocrit (blood only) 39.7 % (37.0-47.0); Hemoglobin 13.7 g/dl (12.0-16.0); Mean Corpuscular Hemoglobin 30.9 pg (25.0-34.0); Mean Corpuscular Hgb Conc 34.5 g/dL (32.0-36.0); Mean Corpuscular Volume 89.4 fL (80.0-100.0); Mean Platelet Volume 10.1 fL (9.4-12.4); Platelet Count 248 K/uL (130-400); RDW Coefficient of Variation 12.9 % (11.5-14.5); RDW Standard Deviation 41.9 fL (36.4-46.3); Red Blood Count 4.44 M/uL (4.20-5.40); White Blood Count 4.65 K/ul (4.8-10.8)
[2023-04-24 08:09] LABS: BUN Creatinine Ratio 22.6 (10-20); Calcium 8.8 mg/dl (8.6-10.3); Creatinine Clr Calc Pharmacy 77.9 ml/min; Est GFR (African American) 105.4 ml/min; Est GFR (Non-African American) 90.9 ml/min; Potassium 3.3 mmol/L (3.5-5.1)
[2023-04-24 08:33] LABS: Magnesium 2.1 mg/dl (1.7-2.4)
[2023-04-24] MEDS ORDERED: POTASSIUM CHLORIDE CRTAB 20 MEQ TABCR PO STA (08:47)
[2023-04-24] MEDS ORDERED: PANTOprazole 40 MG TAB PO SCH (09:00)
[2023-04-24] MEDS ORDERED: DOCUSATE SODIUM 100 MG CAP PO SCH (09:00)
--- NOTE | 2023-04-24 10:57 | Discharge Summary ---
Date of Service April 24, 2023 Admission HPI Per Admitting Provider Genny Corona is a 77yo female with history of HTN, HLP, GERD and Hypothyroidism presenting after an episode of syncope. Patient was sitting at the table with her daughter tonight around 17:15 when when she slumped forward and became unresponsive. She was out for approximately 45 seconds then woke up. Her daughter says that she was initially slightly confused but then returned to normal quickly. Patient does not recall the event. She denies chest pain, palpitations, dizziness or lightheadedness. No report of fever or chills, cough, SOB or headache. Patient with no prior syncopal events. Additionally, patient endorses some heat intolerance for the last several weeks as well as weight loss of approximately 25# since having a hiatal hernia repair surgery in November 2022. She has been eating much less since her surgery. Today she had a couple of crackers with peanut butter and chocolate milk only. Upon arrival she was found to be in atrial fibrillation with RVR, no history of such. Repeat EKG with sinus rhythm with PACs ER Course: NSS x 1L Admission Exam Per Admitting Provider General: patient resting comfortably, NAD, non-toxic in appearance, AA&O x 4 Skin: warm, dry, intact, no rashes or lesions HEENT: NC/AT, PERRL, EOMI, anicteric sclera, conjunctiva without injection, external ear normal to inspection and nontender, nares patent, moist mucus membranes, dentition intact, no oropharyngeal lesions, neck supple, trachea midline, no LAD, no thyromegaly, goiter, nodules or tenderness, no JVD Heart: +S1/S2, regular with ectopy, tachycardic, no m/r/g Lungs: equal air entry bilaterally, no rales/rhonchi/wheezes Abd: +BS, soft, NT/ND, no masses/organomegaly/ascites Ext: warm, 2+ pulses in UE/LE bilaterally, no clubbing/cyanosis, trace pitting edema Neuro: nonfocal, patient AA&O x 4, speech intact, no facial droop, moving all extremities on command with equal strength 5/5 Principal Diagnosis Hyperthyroidism Discharge Exam General: WN/WD female sitting up at side of bed, at bedside, NAD, wanting to go home HEENT: head normocephalic, atraumatic, no thyromegaly, trachea midline Resp: CTA, no w/c/r, on room air CV: RRR, no significant m/r/g, NSR w/ PACs on monitor, no significant edema or calf tenderness GI: +BS, soft/NT : no romero MSK/Neuro: no focal deficit, no slurred speech, CN intact grossly, answering questions appropriately Psych: AOx3, cooperative with exam Discharge Data Allergies Allergy/AdvReac Type Severity Reaction Status Date / Time fentanyl Allergy Intermediate Rash Verified 04/21/23 09:45 midazolam Allergy Intermediate Rash Verified 04/21/23 09:45 oxycodone AdvReac Intermediate Feel Verified 04/21/23 09:45 "goofy" and "sick to my stomach" cefdinir AdvReac Mild Gastrointestinal Verified 04/21/23 08:50 Upset Tetracyclines AdvReac Mild Gastrointestinal Verified 04/21/23 08:50 Upset Consultations 04/23/23 21:54 ED Decision to Admit Stat Ordered Studies Chest X-Ray 04/23/23 18:28 XR chest 1V portable CLINICAL HISTORY: syncope TECHNIQUE: Single frontal radiograph of the chest was obtained. Comparison: None available at the time of this dictation. FINDINGS: No lines and tubes are seen. The cardiomediastinal silhouette is normal. The lungs are clear. No evidence of pleural effusion or pneumothorax. IMPRESSION: No acute chest disease. ACT 112: Negative or not required by law. Electronically signed by: Nitish Curry M.D. 04/24/2023 7:[address] 04/23/23 18:48 Exam(s): CT HEAD Without Contrast EXAM: CT Head Without Intravenous Contrast CLINICAL HISTORY: Reason for exam: syncope, AMS. TECHNIQUE: Axial computed tomography images of the head/brain without intravenous contrast. CTDI is 38.55 mGy and DLP is 624.41 mGy-cm. Automated exposure control was utilized for the study. A dose lowering technique was utilized adhering to the principles of ALARA. COMPARISON: No relevant prior studies available. FINDINGS: No acute intracranial hemorrhage. No midline shift or mass effect. The territorial mahoney-white matter differentiation is maintained throughout. Age-related cerebral volume loss. Periventricular and subcortical white matter hypoattenuation, consistent with chronic microangiopathy. The visualized orbits appear grossly unremarkable. The calvarium is intact. The visualized paranasal sinuses and mastoid air cells are grossly clear. IMPRESSION: No acute intracranial hemorrhage, midline shift, or mass effect. Electronically signed by: Sixto Reich MD 04/23/23 20:11 PM Thyroid Ultrasound 04/24/23 01:41 THYROID ULTRASOUND HISTORY: hyperthyroidism COMPARISON: None. FINDINGS: Right lobe: 35 x 16 x 13 mm. The gland is heterogeneous. No definite nodules. Left lobe: 31 x 14 x 11 mm. The gland is heterogeneous. No definite nodules. Isthmus: 2 mm in thickness. No nodules. IMPRESSION: Heterogeneous and slightly atrophic thyroid gland. No definite nodules. ACT 112: Negative or not required by law. Electronically signed by: Grzegorz Darnell M.D. 04/24/2023 11:41 AM ECHOCARDIOGRAM - Left ventricular systolic function is normal. RV systolic pressure is normal. No significant valvular heart disease. Hospital Course (1) Syncope: 77yo female presenting with syncopal event. New atrial fibrillation noted on initial EKG, possible cause of syncopal event. Repeat EKG w/o afib, NSR w/ PACs on monitor. CT head negative for acute finding ECHO- Left ventricular systolic function is normal. RV systolic pressure is normal. No significant valvular heart disease. IVF on admission/HCTZ held. Placed on propranolol, held Synthroid No further afib on telemetry, no further syncopal type episode reported and wanting to go home Discussed continuing propranolol 10mg TID in meantime to prevent afib, also to place on baby aspirin 81mg daily at discharge. CHADsVASC score is 4 for age/female sex/HTN history, however given cause w/ hyperthyroidism/correctable, do not feel anticoagulation necessary. Arranged for Holter monitor at discharge -- if having parosyxmal afib, likely need for anticoagulation Upcoming knee surgery -- discussed to call pre-anesthesia testing to discuss inpatient stay/if needing to reschedule (2) Atrial fibrillation: Patient with atrial fibrillation noted on initial EKG. No history of prior. Blood pressure is stable. Electrolytes largely normal. Patient with abnormal thyroid function testing - TSH low at 0.013 and T4 high at 2.32. She is on Synthroid 25mcg po daily which is a stable unchanged dose. No new medications or recent illness. Hyperthyroidism - with recent heat intolerance, weight loss and new atrial fibrillation. ECHO w/o valvular disease TSH low 0.013 (normal in December), T4 elevated to 2.32, T3 elevated 4.34 Thyroid US without suspicious nodules No further Afib on monitor -- ASA 81mg and holter at discharge Propranolol 10mg TID in meantime while correcting TSH Recs to hold synthroid for tomorrow and resume Q2D thereafter and have repeat TFT with PCP in a month to see if further adjustment needed Of note, discussed w/endo outpatient and recs to add TSI to labs -- added and pending at discharge to r/o Graves or other etiology (3) Hypothyroidism: With hyperthyroidism. On Synthroid 25mcg daily [employer] but TSH low/elevated T3/T4 as above and held on admission -- to resume Q2D at discharge as above and repeat testing w/ PCP/adjustment as needed Thyroid US unremarkable, slightly atrophic Propranolol as above in meantime while correcting hyperthyroidism to prevent recurrance of afib. 1month rx provided TSI as above added to labs at discharge as discussed w/ endocrinology and will need outpatient f/u PCP at discharge. Can ref to Endo if TSI elevated (4) Hypertension: Held HCTZ on admission given hyponatremia/hypokalemia on labs. GIven initiation of propranolol as above, BPs stable with such and decision to hold HCTZ at discharge until f/u with primary care (5) Hyperlipidemia: Chronic. Stable -Continued Pravastatin 20mg po qHS (6) GERD (gastroesophageal reflux disease): Chronic. Stable. -Continued Protonix 40mg po daily (7) Brain aneurysm: Patient with 3mm aneurysm discovered on brain imaging 06/2022 on CTA. She was seen by Neurology in January 2023 and is to followup with Neurosurgery at [facility] at some point. She has not yet been seen by Neurosurgery. She is scheduled to have repeat brain imaging in June. Denies headache, visual changes, focal deficits. Total Time Total Time Spent Total Time Spent (In Minutes): 45 Discharge Plan Discharge Items Patient Disposition: Home - Self-Care Reason For Visit: SYNCOPE Discharge Diagnosis: Hyperthyroidism Goals: You have been hospitalized for an acute medical problem. During your stay at [facility], we have made an effort to correct the problem that brought you to the hospital while keeping you as comfortable as possible. Medications were used to bring your condition under control and your discharge instructions will include directions for any medications you should take after leaving the hospital. Please make sure you see your Primary Care Provider as part of your follow up plan. Activity: As commented below Non-emergency contact: Primary Care Provider Call non-emergency contact if: you have any medication questions, your symptoms worsen and you have a fever Follow-up/Referrals: Dennise Martinez MD [Primary Care Provider] - 05/01/23 9:00 am Diet: Heart Healthy Addtl Attending Provider Instructions: You have been hospitalized for syncope. CT of the head was negative and you are back to your baseline mentally. This episode is suspected from over treated thyroid and your Synthroid has been reduced to EVERY OTHER day, starting on Thursday. You will need repeat labs in a month to see if further reduction/adjustment required. We are setting you up with an event monitor to see if you are having any further episodes of atrial fibrillation. You should continue a baby aspirin daily in the meantime. You should alert pre-anesthesia testing of your recent hospitalization to see about holding this aspirin before surgery or if any need to postpone surgery. You will be continued on a medication called propranolol in the meantime for blood pressure and heart rate and you should be HOLDING your hydrochlorothiazide in the meantime to prevent dehydration or low potassium levels unless instructed by your primary care provider otherwise. You should follow up with primary care in the next 7-10 days after discharge to monitor your progress. Please return to the emergency department with any worsening symptoms. It has been a pleasure being a part of the medical team providing for you while you have been in the hospital. Take care! Pending Studies at Discharge: Yes Studies:: TSI Stand-Alone Forms: [facility], Smoking Cessation Medications and DC Order Prescriptions: New propranolol 10 mg Tablet 10 mg PO TID 30 Days Qty: 90 0RF aspirin 81 mg capsule 81 mg PO DAILY Qty: 30 0RF Continued losartan 25 mg tablet 25 mg PO HS Qty: 90 3RF pravastatin 20 mg tablet 20 mg PO HS Qty: 90 3RF multivitamin tablet 1 tab PO QAM cholecalciferol (vitamin D3) 1,000 unit (25 mcg) tablet 1,000 unit PO QAM Move Free [place] 750 mg-100 mg- 1.65 mg-108 mg tablet 1 tab PO QAM famotidine [Pepcid AC] 10 mg tablet 10 mg PO QPM meclizine 25 mg tablet 25 mg PO TID PRN (Reason: dizziness) Qty: 60 0RF docusate sodium 100 mg capsule 100 mg PO BID calcium carbonate [Calcium 600] 600 mg calcium (1,500 mg) Tablet 600 mg PO QAM pantoprazole 40 mg tablet,delayed release (DR/EC) 40 mg PO QAM ondansetron 4 mg tablet,disintegrating 4 mg PO Q8H PRN (Reason: nausea and vomiting) Qty: 20 0RF Changed levothyroxine 25 mcg tablet 25 mcg PO Q2D Qty: 90 3RF Held potassium chloride [Klor-Con M20] 20 mEq tablet,ER particles/crystals 40 meq PO QAM Qty: 180 3RF Hold Instructions: Resume on 05/01/23. hold while off HCTZ hydrochlorothiazide 25 mg tablet 25 mg PO QAM Qty: 90 3RF Hold Instructions: Resume on 05/01/23. hold until seen by PCP or instructed to resume Discharge Orders: Discharge Order (Routine); Ordered 04/24/23 Ordered By: Brenda Kline Admission Data Admit Date/Time: 04/23/23 22:06 Attending Provider: Nahid José Admit Provider: Kaylee Lechuga Primary Care Provider: Dennise Martinez Other Providers: Kaylee Lechuga Supervising Physician Co-Signing Physician Notes The patient was not seen by me. The chart was reviewed. Case discussed with TREVA Ray. Agree with assessment and plan Coding Level of Care Code 00922 INP/OBS DISCH >30 MIN Diagnoses Syncope R55 Syncope type: unspecified Atrial fibrillation I48.91 Hypothyroidism E03.9 Hypertension I10 Hyperlipidemia E78.5 GERD (gastroesophageal reflux disease) K21.9 Brain aneurysm I67.1
[2023-04-24] MEDS ORDERED: POTASSIUM CHLORIDE PWD 20 MEQ PACK PO ONE (11:22)
--- NOTE | 2023-04-24 11:42 | Ultrasound Report ---
THYROID ULTRASOUND HISTORY: hyperthyroidism COMPARISON: None. FINDINGS: Right lobe: 35 x 16 x 13 mm. The gland is heterogeneous. No definite nodules. Left lobe: 31 x 14 x 11 mm. The gland is heterogeneous. No definite nodules. Isthmus: 2 mm in thickness. No nodules. IMPRESSION: Heterogeneous and slightly atrophic thyroid gland. No definite nodules. ACT 112: Negative or not required by law. Electronically signed by: Grzegorz Darnell M.D. 04/24/2023 11:41 AM
[2023-04-24] MEDS: PROPRANOLOL HCL 10 MG TAB PO SCH ×2 (11:49→14:58)
--- NOTE | 2023-04-24 12:11 | XCELERA ---
[id number] [id number]
--- NOTE | 2023-04-24 17:46 | Electrocardiogram Report ---
Test Reason : Blood Pressure : / mmHG Vent. Rate : 113 BPM Atrial Rate : 000 BPM P-R Int : 000 ms QRS Dur : 082 ms QT Int : 330 ms P-R-T Axes : 000 041 003 degrees QTc Int : 452 ms Atrial fibrillation with rapid ventricular response Abnormal ECG When compared with ECG of 02-NOV-2022 08:09, Atrial fibrillation has replaced Sinus rhythm Confirmed by Jose Wallis ([id number]) on 04/24/2023 5:45:59 PM Referred By: REFERRED SELF Confirmed By:Cal Wallis
[2023-04-24] MEDS ORDERED: FAMOTIDINE 10 MG TABLET PO SCH (21:00)
[2023-04-24] MEDS ORDERED: PRAVASTATIN SOD 20 MG TAB PO SCH (21:00)
[2023-04-24] MEDS ORDERED: LOSARTAN POTASSIUM 25 MG TAB PO SCH (21:00)
--- NOTE | 2023-04-27 09:26 | Electrocardiogram Report ---
Test Reason : Blood Pressure : / mmHG Vent. Rate : 091 BPM Atrial Rate : 091 BPM P-R Int : 154 ms QRS Dur : 076 ms QT Int : 348 ms P-R-T Axes : 044 030 020 degrees QTc Int : 428 ms Sinus rhythm with Premature atrial complexes Otherwise normal ECG When compared with ECG of 02-NOV-2022 08:09, Premature atrial complexes are now Present Confirmed by Jose Wallis ([id number]) on 04/24/2023 6:07:15 PM Referred By: REFERRED SELF Confirmed By:Cal Wallis
== END 2023-04-24 15:52 | disposition home or self-care (01) ==
LOC: 2W 18:05 → ED 18:05 → SUATTDRO 22:06 → 2W 04-24 00:43

== ENCOUNTER 2025-05-03 01:09 | Inpatient (IN) ==
--- NOTE | 2025-05-03 02:58 | Emergency Department Note ---
Impression & Plan Acute hyponatremia Admission ED Provider Note HPI: History obtained from patient. The patient is a 79-year-old female who presents the emergency department with chief complaint of atraumatic pain in the bilateral wrists. Patient states that she has had the symptoms for about the past 10 days. Patient states that her primary care doctor put her on Bactrim over concern for a possible cellulitis from a bug bite. On arrival here to the ED the patient otherwise appears to be in no acute distress, she is afebrile, she has some mild erythema with swelling to the bilateral wrists, mostly to the ulnar aspect bilaterally. There is no significant joint swelling, motor and sensory function is intact distally in the hands bilaterally. ROS: - Per HPI Differential Diagnosis: Osteoarthritis, gout, septic arthritis, fracture, dislocation, rheumatoid arthritis, Lyme arthritis, amongst other potential pathologies. *Outpatient medications and allergy history reviewed. 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 X-ray imaging shows osteoarthritis, no fracture or dislocation. Patient later complained of some nausea and had an episode of low-volume emesis while here in the ED. She states that she has had this for several days. Her abdomen is soft and nontender. IV was therefore established, patient was given IV fluids as well as IV morphine and IV Zofran. Lab work shows no leukocytosis, hemoglobin is stable at 11.4, platelet count is normal, CMP shows a severe hyponatremia 116 that does appear to be new. Otherwise no critical findings are noted. Patient denies any recent seizure- like activity or syncope, she states she does not feel lightheaded, she states she has not had any large-volume emesis recently. She notes that she did start Fosamax recently and she is also noted to be on hydrochlorothiazide. Given the patient's nausea, wrist pain, and severe hyponatremia, I did recommend admission and the patient was in agreement. Case was discussed with the on-call hospitalist, Dr. Lechuga, and the patient was placed for admission in stable condition for further care. Consultants/Discussions held with other healthcare providers: - Hospitalist, Dr. Lechuga Disposition discussion held by myself with: - Patient and at bedside Diagnosis: 1. Hyponatremia, acute, nonspecific 2. Arthralgias of the bilateral wrists, acute on chronic 3. Osteoarthritis of the left knee, acute on chronic 4. Nausea, acute Disposition: Admission Lon Leroy DO Emergency Medicine Past Med/Surg History Problem List (Updated 05/03/25 @ 14:44 by Lon Leroy DO) Acute hyponatremia (Acute) Hyponatremia Cellulitis of right hand Left shoulder pain Left wrist pain Osteoporosis Trochanteric bursitis of left hip Lumbar radiculopathy Arthralgia Myofascial pain Spinal stenosis of lumbar region Sacroiliitis Disc degeneration, lumbar Low back pain Low back pain radiating to right lower extremity Sciatic leg pain Right hip pain Status post total right knee replacement (~04/2023) Hyperthyroidism Preoperative cardiovascular examination PAF (paroxysmal atrial fibrillation) (Acute) Syncope (Acute) Tendinitis of right rotator cuff History of repair of hiatal hernia Laparoscopic Repair Hiatal Hernia, Partial Fundoplication, gastropexy (12/11/22): Grade view 1, Glidescope#3, ETT 7.0, atraumatic x1 at [facility] Rectocele Ganglion Elevated serum globulin level Diverticulitis of colon Hiatal hernia Acute sinusitis Brain aneurysm 3mm per 06/2022 head CTA, saw neuro (Rose Valenzuela) 01/2023; was referred to neuro surgeon at [facility], has not followed up yet GI symptoms Vaginal prolapse Vaginal burning Right leg swelling Bunion Encounter for pre-operative examination Scoliosis GERD (gastroesophageal reflux disease) Encounter for examination following treatment at hospital Osteoarthritis of knees, bilateral Abdominal pain Trochanteric bursitis, right hip Non-healing skin lesion Routine health maintenance Hordeolum of left upper eyelid Vitamin D deficiency Allergic rhinitis Dry skin Hypothyroidism Vertigo Hyperlipidemia Hypokalemia Hypertension (Chronic) Medical History Vitamin D deficiency Scoliosis Osteoarthritis bilat. knees, and hands/fingers Hx of vertigo meds prn, no current issues Chronic back pain takes tylenol daily BID Hypothyroidism Hypertension Hyperlipidemia Hx of gastroesophageal reflux (GERD) no issues since having Gilbert fundoplication Disc degeneration, lumbar f/u morelia jacobs will now be seeing dr. storey's PA 01/21/24 Brain aneurysm 3mm per 06/2022 head CTA, saw neuro (Rose Valenzuela) 01/2023; was referred to neuro surgeon at [facility] "she has decided not to follow up with a neuro surgeon" Atrial fibrillation per pt-"only happened once and passed out and taken to the [facility] ER," f/u valerio leggett pr cardio>advised to take eliquis, but pt declined to take. only taking aspirin 81mg daily Seasonal allergies Shoulder pain Right steroid injection (Dr. Pulliam 03/2023); "has off and on" Osteopenia after menopause Insomnia Dysphagia hx-pt stated "it only occurred when swallowing large potassium pills" Diverticulosis of colon hx Surgical History History of left cataract extraction History of repair of hiatal hernia Laparoscopic Repair Hiatal Hernia, Partial Fundoplication, gastropexy (12/11/22): Grade view 1, Glidescope#3, ETT 7.0, atraumatic x1 at [facility] Hx of left breast biopsy benign-marker placed History of total right knee replacement 05/11/23, [facility] History of anesthesia reaction "difficulty waking" Status post trigger finger release R/L thumbs History of bladder suspension procedure History of colonoscopy History of tooth extraction H/O: hysterectomy TVH, Anterior colporrhaphy, Biat uterosacral ligament vag vault suspension, cystoscopy (2019) Family History Father Stroke syndrome Sister Diabetes Hypertension Brother Coronary heart disease Macular degeneration Mother Dementia Other No family history of adverse response to anesthesia Denies family history of Ovarian cancer Prostate cancer Myocardial infarction Breast cancer Colorectal cancer Social History Smoking Status: Never smoker Second Hand Exposure: No; Do You Dip or Chew Tobacco: No; Hx Alcohol Use: No Hx Substance Use: No Preferred Language: Georgian Communication Ability: Effective Visual Impairment: Limited Hearing Ability: Normal Lead Project Engineer Required: No Beliefs That Will Affect Care: None marital status: Current Living Situation: Spouse Current Living Situation Comment: lives with current 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: 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 How many Children do You have: 2 Feels Safe at Home: Yes Childhood Exposure to Second-Hand Smoke: Yes Diet: regular caffeine: Yes (Coffee and tea) during the past year weight has: remained stable Dental Care, Regularly: Yes Physical Activity Frequency: Daily Seatbelt Use: always Sunscreen Use: Yes Gender Identity: Female Assistive Devices: Glasses Allergies Allergies Allergy/AdvReac Type Severity Reaction Status Date / Time fentanyl Allergy Intermediate Rash Verified 04/28/25 11:50 midazolam Allergy Intermediate Rash Verified 04/28/25 11:50 oxycodone AdvReac Intermediate Feel Verified 04/28/25 11:50 "goofy" and "sick to my stomach" cefdinir AdvReac Mild Gastrointestinal Verified 04/28/25 11:50 Upset Tetracyclines AdvReac Mild Gastrointestinal Verified 04/28/25 11:50 Upset Home Meds Home Medications Medication Instructions Recorded Confirmed multivitamin 1 tab PO QAM 03/21/19 04/28/25 cholecalciferol (vitamin D3) 25 1,000 unit PO QAM 05/30/19 04/28/25 mcg (1,000 unit) tablet calcium carbonate (Calcium 600) 600 mg PO QAM 11/04/21 04/28/25 docusate sodium 100 mg capsule 100 mg PO BID 02/27/22 04/28/25 aspirin 81 mg chewable tablet 81 mg PO QPM 07/24/23 04/28/25 acetaminophen 500 mg tablet 1,000 mg PO DIRECTED PRN 01/04/24 04/28/25 (Acetaminophen Extra Strength) PAIN/FEVER biotin 10,000 mcg disintegrating 10,000 mcg PO QPM 01/04/24 04/28/25 tablet glucosamine sulf dipot 1 cap PO QPM 01/04/24 04/28/25 chlr,msm,chond 550 mg-C 30 mg-helena 1 mg capsule (Glucosamine Chondroitin) polyethylene glycol 3350 17 17 g PO DAILY PRN Constipation 11/30/24 04/28/25 gram/dose oral powder (Miralax) famotidine 20 mg tablet (Pepcid) 20 mg PO BID 01/10/25 04/28/25 Previous Rx's Medication Instructions Recorded meclizine 25 mg tablet 25 mg PO TID PRN dizziness #60 tabs 11/07/22 losartan 25 mg tablet 25 mg PO HS #90 tabs 07/18/24 pravastatin 20 mg tablet 20 mg PO HS #90 tabs 07/18/24 levothyroxine 25 mcg tablet 25 mcg PO DAILY #90 tabs 12/19/24 amoxicillin 500 mg tablet 2,000 mg (4 x 500 mg) PO 01/08/25 DIRECTED PRN 1 HR PRIOR TO DENTAL APPT. #4 tabs alendronate 70 mg tablet 70 mg PO Q7D #12 tabs 03/01/25 sulfamethoxazole 800 1 tab PO BID 7 days #14 tabs 04/28/25 mg-trimethoprim 160 mg tablet (Bactrim DS) hydrochlorothiazide 25 mg tablet 25 mg PO DAILY #90 tabs 05/01/25 meloxicam 15 mg tablet 15 mg PO DAILY #90 tabs 05/02/25 Results & Data (ED) Vital Signs Vital Signs - 24 hr 05/03/25 01:14 05/03/25 03:48 05/03/25 04:13 Temperature 36.9 C Temperature Source Temporal Artery Scan Pulse Rate 84 73 75 Pulse Rate from SpO2 Sensor Pulse Rhythm Regular Respiratory Rate 19 19 Respiratory Effort / Characteristics Non-Labored Spontaneous Respiratory Depth Normal Blood Pressure 162/78 H Blood Pressure Mean 106 Pulse Oximetry 99 98 Oxygen Delivery Method Room Air Room Air Sepsis Recent Fever Within 48 Hours No Sepsis New/Unexplained Change in Mental Status N/A Sepsis Action Taken by Nursing No Action Required 05/03/25 04:18 05/03/25 04:24 05/03/25 04:30 Temperature Temperature Source Pulse Rate 79 76 Pulse Rate from SpO2 Sensor 78 77 Pulse Rhythm Respiratory Rate 20 17 Respiratory Effort / Characteristics Respiratory Depth Blood Pressure 144/70 H Blood Pressure Mean 115 Pulse Oximetry 96 93 Oxygen Delivery Method Sepsis Recent Fever Within 48 Hours Sepsis New/Unexplained Change in Mental Status Sepsis Action Taken by Nursing 05/03/25 04:39 05/03/25 04:48 05/03/25 04:54 Temperature Temperature Source Pulse Rate 80 83 77 Pulse Rate from SpO2 Sensor 80 83 79 Pulse Rhythm Respiratory Rate 18 23 15 Respiratory Effort / Characteristics Respiratory Depth Blood Pressure Blood Pressure Mean Pulse Oximetry 98 95 96 Oxygen Delivery Method Sepsis Recent Fever Within 48 Hours Sepsis New/Unexplained Change in Mental Status Sepsis Action Taken by Nursing Laboratory Data 05/03/25 03:24 05/03/25 12:58 Lab Results 05/03/25 05/03/25 Range/Units 03:24 03:46 WBC 6.60 (4.8-10.8) K/ul RBC 3.53 L (4.20-5.40) M/uL Hgb 11.4 L (12.0-16.0) g/dl Hct 32.2 L (37.0-47.0) % MCV 91.2 (80.0-100.0) fL MCH 32.3 (25.0-34.0) pg MCHC 35.4 (32.0-36.0) g/dL RDW Std Deviation 42.5 (36.4-46.3) fL RDW Coeff of Ameya 13.0 (11.5-14.5) % Plt Count 198 (130-400) K/uL MPV 10.0 (9.4-12.4) fL Immature Gran % (Auto) 2.9 % Neut % (Auto) 72.6 % Lymph % (Auto) 7.1 % Green % (Auto) 16.7 % Eos % (Auto) 0.2 % Baso % (Auto) 0.5 % Neut # (Auto) 4.80 (1.40-6.50) K/uL Lymph # (Auto) 0.47 L (1.20-3.40) K/uL Green # (Auto) 1.10 H (0.11-0.59) K/uL Eos # (Auto) 0.01 (0.00-0.50) K/uL Baso # (Auto) 0.03 (0.00-0.20) K/uL Immature Gran # (Auto) 0.19 (0.01-0.20) K/uL Sodium 116 L* (136-145) mmol/L Potassium 4.1 (3.5-5.1) mmol/L Chloride 85 L (98-107) mmol/L Carbon Dioxide 23 (21-32) mmol/L Anion Gap 8 (3-11) BUN 10 (6-23) mg/dl Creatinine 0.66 (0.6-1.2) mg/dl Est Cr Clr Drug Dosing 53.8 ml/min eGFR 88.62 BUN/Creatinine Ratio 15.2 (10-20) Glucose 132 H (70-99(Fasting)) mg/dl Osmolality 243 L (280-300) mOsm/kg Calcium 8.6 (8.6-10.3) mg/dl Total Bilirubin 0.5 (0.2-1.0) mg/dl AST 17 (13-39) U/L ALT 6 L (7-52) U/L Alkaline Phosphatase 53 (34-104) U/L Total Protein 6.8 (6.0-8.3) gm/dl Albumin 3.8 (3.4-5.0) gm/dl Globulin 3.0 (2.5-4.0) gm/dl Albumin/Globulin Ratio 1.3 (0.9-2) Lipase 18 (11-82) U/L Lyme Disease Screen Negative (Negative) Administered Medications Acetaminophen (Acetaminophen 325 Mg Tab) 650 mg PO Q4H PRN PRN Reason: Pain or Fever Stop: 06/02/25 08:55 Last Admin: 05/03/25 09:17 Dose: 650 mg Documented By: MMF Enoxaparin Sodium (Enoxaparin Inj 40 Mg/0.4 Ml Syr) 40 mg SQ Q24H MONSE Stop: 06/02/25 08:59 Last Admin: 05/03/25 09:17 Dose: 40 mg Documented By: MMF Famotidine (Famotidine 20 Mg Tab) 20 mg PO BID MONSE Stop: 06/02/25 08:59 Last Admin: 05/03/25 09:17 Dose: 20 mg Documented By: MMF Discontinued Medications Sodium Chloride (Nss) 500 mls @ 999 mls/hr IV .Q31M STA Stop: 05/03/25 03:54 Last Infusion: 05/03/25 06:20 Dose: Infused Documented By: Admin: 05/03/25 04:13 Dose: 999 mls/hr Documented By: JANN Sodium Chloride (Hypertonic Saline 3%) 100 mls @ 600 mls/hr IV .Q10M ONE; Protocol Stop: 05/03/25 10:45 Last Infusion: 05/03/25 11:36 Dose: Infused Documented By: AG Co-signed By: SERGO Admin: 05/03/25 11:19 Dose: 600 mls/hr Documented By: AG Co-signed By: SERGO Morphine Sulfate (Morphine Sulfate 4 Mg/Ml 1 Ml Carp\\Vial) 4 mg IV NOW STA Stop: 05/03/25 03:25 Last Admin: 05/03/25 04:09 Dose: 4 mg Documented By: JANN Ondansetron HCl (Ondansetron Inj 2 Mg/Ml 2 Ml Vial) 4 mg IV NOW STA Stop: 05/03/25 03:25 Last Admin: 05/03/25 04:13 Dose: 4 mg Documented By: JANN Prednisone (Prednisone 20 Mg Tab) 40 mg PO NOW STA Stop: 05/03/25 02:44 Last Admin: 05/03/25 04:09 Dose: 40 mg Documented By: JANN Imaging Data Radiologist's Impression: Wrist X-Ray 05/03/25 02:43 EXAM: XR wrist LT min 3V routine CLINICAL HISTORY: Atraumatic wrist pain TECHNIQUE: X-ray images of the left wrist were obtained in anteroposterior (AP), lateral, and oblique projections. COMPARISON: No prior studies available for comparison. FINDINGS: Bone Structure: Bone structure is normal and aligned?no evidence of fracture or dislocation. Negative ulnar variance. Osteopenia with mild degenerative changes. Joint Spaces: Mild osteoarthritic changes of the scanned joints, more at the first carpometacarpal articulation. Otherwise, joint spaces are normal. No evidence of joint effusion or subluxation. Soft Tissues: Soft tissues appear normal and unremarkable. No soft tissue swelling, calcifications, or foreign bodies noted. IMPRESSION: 1. Negative ulnar variance. Osteopenia with mild degenerative changes of scanned joints. 2. No evidence of acute fracture, dislocation, or significant soft tissue abnormalities. Disclaimer: A subtle bone abnormality or fracture may not be readily apparent on X-rays; thus, clinical correlation and further imaging, including follow-up CT, MRI, or follow-up X-rays, are advised as needed. Electronically signed by Be Steven 05-03-2025 04:40 AM Wrist X-Ray 05/03/25 02:43 EXAM: XR wrist RT min 3V routine CLINICAL HISTORY: Atraumatic wrist pain TECHNIQUE: X-ray images of the right wrist were obtained in PA, lateral, and oblique projections. COMPARISON: No prior studies available for comparison. FINDINGS: Bone Structure: Bone structure is normal and aligned. No evidence of fracture or dislocation. Osteopenia. Joint Spaces: Osteoarthritic changes of the scanned joints, more at first carpometacarpal articulation. Otherwise, joint spaces are normal. No evidence of joint effusion or subluxation. Soft Tissues: Soft tissues appear normal and unremarkable. No soft tissue swelling, calcifications, or foreign bodies noted. Additional Findings: Minimal deformity of the ulnar articular surface, likley post old traumatic or degenerative sequel. IMPRESSION: 1. No evidence of acute fractures or dislocations. 2. Osteopenia. 3. Osteoarthritic changes of the scanned joints, more at first carpometacarpal articulation. Disclaimer: A subtle bone abnormality or fracture may not be readily apparent on X-rays, thus clinical correlation and further imaging including follow-up CT, MRI, or follow-up X-rays are advised as needed. Electronically signed by Be Steven 05-03-2025 03:55 AM Knee X-Ray 05/03/25 03:24 EXAM: XR knee LT 3V CLINICAL HISTORY: pain, no trauma TECHNIQUE: X-ray images of the left knee were obtained in anteroposterior (AP), lateral, and sunrise/skyline (patellar) projections. COMPARISON: 09/28/2024 FINDINGS: Bone Structure: Bone structure is normal and well-aligned. No evidence of acute fractures or dislocations. No osseous lesions or abnormalities identified. Joint Spaces: Partially narrowed medial tibiofemoral and patellofemoral compartments. No significant narrowing of the lateral compartment. Articular Surfaces: Marginal tibiofemoral and patellar polar spurs are seen. Tibial spine spikikg is also noted. No signs of subchondral sclerosis. Patella: Patella is normal in position and alignment. No evidence of patellar dislocation or subluxation. Inferior patellar enthesopthyte is seen. Soft Tissues: Vacular calcifications noted. Additional Findings: Opacification seen in the suprapatellar space suggesting effusion. IMPRESSION: No evidence of acute fractures or dislocations. Mild osteoarthritic changes. Mild joint effusion. No significant interval changes. Disclaimer: A subtle bone abnormality or fracture may not be readily apparent on X-rays, thus clinical correlation and further imaging including follow-up CT, MRI, or follow-up X-rays are advised as needed. Electronically signed by Be Steven 05-03-2025 04:47 AM Chest X-Ray 05/03/25 04:50 EXAM: XR chest 1V portable CLINICAL HISTORY: Weak, hyponatremia, eval for mass TECHNIQUE: An X-ray image of the chest is obtained in AP projection. COMPARISON: 00:55:00 TRACK PATROL. FINDINGS: Pulmonary Parenchyma: Focal atelectasis noted involving left lower zone near left costophrenic angle. Rest of Lungs are clear bilaterally. No evidence of consolidation, collapse, or focal opacities. No pulmonary nodules are identified. No evidence of pleural effusion or pleural thickening. Heart and Mediastinum: Heart size and shape are normal. No mediastinal widening or masses. No hilar or mediastinal lymphadenopathy. Bony Thorax: Bony thorax appears intact without fractures or deformities. Soft Tissues: Soft tissues overlying the chest wall are unremarkable. IMPRESSION: Focal atelectasis noted involving left lower zone near left costophrenic angle.-new finding. No other new interval abnormality since prior study. Electronically signed by Jose Smith 05-03-2025 06:45 AM Discharge Plan Visit Data Chief Complaint: Wrist Pain Stated Complaint: LT WRIST PAIN ED Provider: Lon Leroy Discharge Problem: Acute hyponatremia Patient Disposition: Admitted As Inpatient Condition: Fair Discharge Instructions Interventions: ED Discharge Assessment Last Done: 05/03/25 08:56
--- NOTE | 2025-05-03 03:56 | XRay Report ---
EXAM: XR wrist RT min 3V routine CLINICAL HISTORY: Atraumatic wrist pain TECHNIQUE: X-ray images of the right wrist were obtained in PA, lateral, and oblique projections. COMPARISON: No prior studies available for comparison. FINDINGS: Bone Structure: Bone structure is normal and aligned. No evidence of fracture or dislocation. Osteopenia. Joint Spaces: Osteoarthritic changes of the scanned joints, more at first carpometacarpal articulation. Otherwise, joint spaces are normal. No evidence of joint effusion or subluxation. Soft Tissues: Soft tissues appear normal and unremarkable. No soft tissue swelling, calcifications, or foreign bodies noted. Additional Findings: Minimal deformity of the ulnar articular surface, likley post old traumatic or degenerative sequel. IMPRESSION: 1. No evidence of acute fractures or dislocations. 2. Osteopenia. 3. Osteoarthritic changes of the scanned joints, more at first carpometacarpal articulation. Disclaimer: A subtle bone abnormality or fracture may not be readily apparent on X-rays, thus clinical correlation and further imaging including follow-up CT, MRI, or follow-up X-rays are advised as needed. Electronically signed by Be Steven 05-03-2025 03:55 AM
[2025-05-03 03:58] LABS: Hematocrit (blood only) 32.2 % (37.0-47.0); Hemoglobin 11.4 g/dl (12.0-16.0); Immature Granulocytes # (auto) 0.19 K/uL (0.01-0.20); Immature Granulocytes % (auto) 2.9 %; Mean Corpuscular Hemoglobin 32.3 pg (25.0-34.0); Mean Corpuscular Volume 91.2 fL (80.0-100.0); Platelet Count 198 K/uL (130-400); RDW Standard Deviation 42.5 fL (36.4-46.3); Red Blood Count 3.53 M/uL (4.20-5.40); White Blood Count 6.60 K/ul (4.8-10.8)
[2025-05-03] MEDS: MoRPHine SULFATE 4 MG/ML 1 ML CARP\\VIAL IV STA (04:09)
[2025-05-03] MEDS: predniSONE 20 MG TAB PO STA (04:09)
[2025-05-03] MEDS: SODIUM CHLORIDE 0.9% 500 ML IV STA (04:13)
[2025-05-03] MEDS: ONDANSETRON INJ 2 MG/ML 2 ML VIAL IV STA (04:13)
[2025-05-03 04:28] LABS: Alanine Aminotransferase 6.0 U/L (7-52); Albumin Globulin Ratio 1.3 (0.9-2); Alkaline Phosphatase 53.0 U/L (34-104); Anion Gap 8.0 (3-11); Bilirubin,Total 0.5 mg/dl (0.2-1.0); Blood Urea Nitrogen 10.0 mg/dl (6-23); Calcium 8.6 mg/dl (8.6-10.3); Carbon Dioxide 23.0 mmol/L (21-32); Chloride 85.0 mmol/L (98-107); Creatinine Clr Calc Pharmacy 53.8 ml/min; Globulin 3.0 gm/dl (2.5-4.0); Glucose 132.0 mg/dl (70-99(Fasting)); Lipase 18.0 U/L (11-82); Potassium 4.1 mmol/L (3.5-5.1); Sodium 116.0 mmol/L (136-145); Total Protein 6.8 gm/dl (6.0-8.3)
--- NOTE | 2025-05-03 04:40 | XRay Report ---
EXAM: XR wrist LT min 3V routine CLINICAL HISTORY: Atraumatic wrist pain TECHNIQUE: X-ray images of the left wrist were obtained in anteroposterior (AP), lateral, and oblique projections. COMPARISON: No prior studies available for comparison. FINDINGS: Bone Structure: Bone structure is normal and aligned?no evidence of fracture or dislocation. Negative ulnar variance. Osteopenia with mild degenerative changes. Joint Spaces: Mild osteoarthritic changes of the scanned joints, more at the first carpometacarpal articulation. Otherwise, joint spaces are normal. No evidence of joint effusion or subluxation. Soft Tissues: Soft tissues appear normal and unremarkable. No soft tissue swelling, calcifications, or foreign bodies noted. IMPRESSION: 1. Negative ulnar variance. Osteopenia with mild degenerative changes of scanned joints. 2. No evidence of acute fracture, dislocation, or significant soft tissue abnormalities. Disclaimer: A subtle bone abnormality or fracture may not be readily apparent on X-rays; thus, clinical correlation and further imaging, including follow-up CT, MRI, or follow-up X-rays, are advised as needed. Electronically signed by Be Steven 05-03-2025 04:40 AM
--- NOTE | 2025-05-03 04:47 | XRay Report ---
EXAM: XR knee LT 3V CLINICAL HISTORY: pain, no trauma TECHNIQUE: X-ray images of the left knee were obtained in anteroposterior (AP), lateral, and sunrise/skyline (patellar) projections. COMPARISON: 09/28/2024 FINDINGS: Bone Structure: Bone structure is normal and well-aligned. No evidence of acute fractures or dislocations. No osseous lesions or abnormalities identified. Joint Spaces: Partially narrowed medial tibiofemoral and patellofemoral compartments. No significant narrowing of the lateral compartment. Articular Surfaces: Marginal tibiofemoral and patellar polar spurs are seen. Tibial spine spikikg is also noted. No signs of subchondral sclerosis. Patella: Patella is normal in position and alignment. No evidence of patellar dislocation or subluxation. Inferior patellar enthesopthyte is seen. Soft Tissues: Vacular calcifications noted. Additional Findings: Opacification seen in the suprapatellar space suggesting effusion. IMPRESSION: No evidence of acute fractures or dislocations. Mild osteoarthritic changes. Mild joint effusion. No significant interval changes. Disclaimer: A subtle bone abnormality or fracture may not be readily apparent on X-rays, thus clinical correlation and further imaging including follow-up CT, MRI, or follow-up X-rays are advised as needed. Electronically signed by Be Steven 05-03-2025 04:47 AM
--- NOTE | 2025-05-03 05:05 | History & Physical Report ---
Date of Service May 03, 2025 Assessment & Plan (1) Hyponatremia: (2) Arthralgia: (3) Hypertension: (4) Hyperlipidemia: (5) Hypothyroidism: (6) GERD (gastroesophageal reflux disease): Plan: 79yo female with history of HTN, HLP, GERD presenting with several weeks of joint pain - bilateral wrist pain, shoulder pain and pain in her left knee. Also with redness, swelling. Generalized weakness and gait instability #Hyponatremia - Jx=[id number]. Likely multifactorial. Patient is on HCTZ. Was recently started on Bactrim for management of suspected cellulitis which can also contribute to hyponatremia. Patient also with decreased oral intake. She reports gait instability but no other neurologic complaints. -Admit to PCU -Check urine and serum Osmolality and urine Na -Check TSH, g and PO4 -BMP q 4 hours -Fluid restriction 1200mL/day for now #Arthritis - patient with pain and inflammation of several joints - bilateral wrists, shoulders and left knee. Patient with no history of trauma. No personal history of rheumatologic diseases. No recent illness. She was recently started on Fosamax 7 weeks ago which can cause joint pain. Lyme is negative. -Check CRP -Check ADDIE -Pain control with Tylenol, Ibuprofen PRN -Ice to wrists and painful joints as needed -Morphine as needed -Colace and Miralax PRN -Hold Fosamax - would consider discontinuing this medication as it is likely contributing to patient's joint pain and inflammation -Hold Bactrim #Hypertension - blood pressure elevated -Pain control -Continue Losartan #Hyperlipidemia - chronic, stable -Continue Pravastatin 20mg po qHS #Hypothyroidism -Check TSH -Continue Synthroid 25mcg po daily #GERD -Pepcid 20mg po BID F/E/N - Fluid restriction. Monitoring Na. Regular diet with sodium restriction 1200mL Ppx - Lovenox Code - Full per discussion on admission Dispo - Admit to PCU History of Present Illness Chief Complaint: joint pain Primary Care Provider: Dennise Martinez MD Genny Corona is an 79yo female with history of HTN, HLP, GERD presenting with severe joint pain. Patient has been having pain, swelling, warmth and redness in her bilateral wrists with radiating pain into her shoulders and arms bilaterally. She was seen by her PCP for this complaint on 04/28/25 and was started on Bactrim for possible cellulitis. Also with pain in the left knee which has now improved. Patient's most severe pain at this time is in her right wrist. She has episodes of severe, shooting pain that cause her to jump and wince in pain. She has not been able to sleep well over the last several days. Also has not been eating well. She denies fever, chills, chest pain, cough, SOB. No vomiting, abdominal pain or diarrhea. She has had some nausea. Has developed some weakness in her hands bilaterally with some numbness in her fingertips as well. Patient also with gait instability. No seizures. In the ER she is afebrile, HD stable ER Course: Morphine 4mg IV Prednisone 40mg po Zofran 4mg IV NSS 500mL Allergies Allergy/AdvReac Type Severity Reaction Status Date / Time fentanyl Allergy Intermediate Rash Verified 04/28/25 11:50 midazolam Allergy Intermediate Rash Verified 04/28/25 11:50 oxycodone AdvReac Intermediate Feel Verified 04/28/25 11:50 "goofy" and "sick to my stomach" cefdinir AdvReac Mild Gastrointestinal Verified 04/28/25 11:50 Upset Tetracyclines AdvReac Mild Gastrointestinal Verified 04/28/25 11:50 Upset Home Medications Medication Instructions Recorded Confirmed Type multivitamin 1 tab PO QAM 03/21/19 04/28/25 History cholecalciferol (vitamin D3) 25 1,000 unit PO QAM 05/30/19 04/28/25 History mcg (1,000 unit) tablet calcium carbonate (Calcium 600) 600 mg PO QAM 11/04/21 04/28/25 History docusate sodium 100 mg capsule 100 mg PO BID 02/27/22 04/28/25 History meclizine 25 mg tablet 25 mg PO TID PRN dizziness #60 tabs 11/07/22 04/28/25 Rx aspirin 81 mg chewable tablet 81 mg PO QPM 07/24/23 04/28/25 History acetaminophen 500 mg tablet 1,000 mg PO DIRECTED PRN 01/04/24 04/28/25 History (Acetaminophen Extra Strength) PAIN/FEVER biotin 10,000 mcg disintegrating 10,000 mcg PO QPM 01/04/24 04/28/25 History tablet glucosamine sulf dipot 1 cap PO QPM 01/04/24 04/28/25 History chlr,msm,chond 550 mg-C 30 mg-helena 1 mg capsule (Glucosamine Chondroitin) losartan 25 mg tablet 25 mg PO HS #90 tabs 07/18/24 04/28/25 Rx pravastatin 20 mg tablet 20 mg PO HS #90 tabs 07/18/24 04/28/25 Rx polyethylene glycol 3350 17 17 g PO DAILY PRN Constipation 11/30/24 04/28/25 History gram/dose oral powder (Miralax) levothyroxine 25 mcg tablet 25 mcg PO DAILY #90 tabs 12/19/24 04/28/25 Rx amoxicillin 500 mg tablet 2,000 mg (4 x 500 mg) PO 01/08/25 04/28/25 Rx DIRECTED PRN 1 HR PRIOR TO DENTAL APPT. #4 tabs famotidine 20 mg tablet (Pepcid) 20 mg PO BID 01/10/25 04/28/25 History alendronate 70 mg tablet 70 mg PO Q7D #12 tabs 03/01/25 04/28/25 Rx sulfamethoxazole 800 1 tab PO BID 7 days #14 tabs 04/28/25 04/28/25 Rx mg-trimethoprim 160 mg tablet (Bactrim DS) hydrochlorothiazide 25 mg tablet 25 mg PO DAILY #90 tabs 05/01/25 Rx meloxicam 15 mg tablet 15 mg PO DAILY #90 tabs 05/02/25 Rx Past Med/Surg History Problem List (Updated 05/03/25 @ 05:43 by Kaylee Lechuga DO) Hyponatremia Cellulitis of right hand Left shoulder pain Left wrist pain Osteoporosis Trochanteric bursitis of left hip Lumbar radiculopathy Arthralgia Myofascial pain Spinal stenosis of lumbar region Sacroiliitis Disc degeneration, lumbar Low back pain Low back pain radiating to right lower extremity Sciatic leg pain Right hip pain Status post total right knee replacement (~04/2023) Hyperthyroidism Preoperative cardiovascular examination PAF (paroxysmal atrial fibrillation) (Acute) Syncope (Acute) Tendinitis of right rotator cuff History of repair of hiatal hernia Laparoscopic Repair Hiatal Hernia, Partial Fundoplication, gastropexy (12/11/22): Grade view 1, Glidescope#3, ETT 7.0, atraumatic x1 at [facility] Rectocele Ganglion Elevated serum globulin level Diverticulitis of colon Hiatal hernia Acute sinusitis Brain aneurysm 3mm per 06/2022 head CTA, saw neuro (Rose Case) 01/2023; was referred to neuro surgeon at [facility], has not followed up yet GI symptoms Vaginal prolapse Vaginal burning Right leg swelling Bunion Encounter for pre-operative examination Scoliosis GERD (gastroesophageal reflux disease) Encounter for examination following treatment at hospital Osteoarthritis of knees, bilateral Abdominal pain Trochanteric bursitis, right hip Non-healing skin lesion Routine health maintenance Hordeolum of left upper eyelid Vitamin D deficiency Allergic rhinitis Dry skin Hypothyroidism Vertigo Hyperlipidemia Hypokalemia Hypertension (Chronic) Medical History Vitamin D deficiency Scoliosis Osteoarthritis bilat. knees, and hands/fingers Hx of vertigo meds prn, no current issues Chronic back pain takes tylenol daily BID Hypothyroidism Hypertension Hyperlipidemia Hx of gastroesophageal reflux (GERD) no issues since having Gilbert fundoplication Disc degeneration, lumbar f/u morelia jacobs will now be seeing dr. storey's PA 01/21/24 Brain aneurysm 3mm per 06/2022 head CTA, saw neuro (Rose Case) 01/2023; was referred to neuro surgeon at [facility] "she has decided not to follow up with a neuro surgeon" Atrial fibrillation per pt-"only happened once and passed out and taken to the [facility] ER," f/u valerio leggett, [place] cardio>advised to take eliquis, but pt declined to take. only taking aspirin 81mg daily Seasonal allergies Shoulder pain Right steroid injection (Dr. Pulliam 03/2023); "has off and on" Osteopenia after menopause Insomnia Dysphagia hx-pt stated "it only occurred when swallowing large potassium pills" Diverticulosis of colon hx Surgical History History of left cataract extraction History of repair of hiatal hernia Laparoscopic Repair Hiatal Hernia, Partial Fundoplication, gastropexy (12/11/22): Grade view 1, Glidescope#3, ETT 7.0, atraumatic x1 at [facility] Hx of left breast biopsy benign-marker placed History of total right knee replacement 05/11/23, [facility] History of anesthesia reaction "difficulty waking" Status post trigger finger release R/L thumbs History of bladder suspension procedure History of colonoscopy History of tooth extraction H/O: hysterectomy TVH, Anterior colporrhaphy, Biat uterosacral ligament vag vault suspension, cystoscopy (2019) Family History Father Stroke syndrome Sister Diabetes Hypertension Brother Coronary heart disease Macular degeneration Mother Dementia Other No family history of adverse response to anesthesia Denies family history of Ovarian cancer Prostate cancer Myocardial infarction Breast cancer Colorectal cancer Social History Smoking Status: Never smoker Second Hand Exposure: No; Do You Dip or Chew Tobacco: No; Hx Alcohol Use: No Hx Substance Use: No Preferred Language: Indonesian Communication Ability: Effective Visual Impairment: Limited Hearing Ability: Normal Geographical Historian Required: No Beliefs That Will Affect Care: None marital status: Current Living Situation: Spouse Current Living Situation Comment: lives with current 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: retired current occupation: [employer] How many Children do You have: 2 Feels Safe at Home: Yes Childhood Exposure to Second-Hand Smoke: Yes Diet: regular caffeine: Yes (Coffee and tea) during the past year weight has: remained stable Dental Care, Regularly: Yes Physical Activity Frequency: Daily Seatbelt Use: always Sunscreen Use: Yes Gender Identity: Female Assistive Devices: Glasses Review of Systems Review of Systems: All systems reviewed & are unremarkable except as noted in HPI & below Physical Exam Physical Exam: General: patient ill in appearance, NAD Skin: warm, dry, intact, no rashes or lesions HEENT: NC/AT, PERRL, EOMI, anicteric sclera, conjunctiva without injection, external ear normal to inspection and nontender, nares patent, moist mucus membranes, dentition intact, no oropharyngeal lesions, neck supple, trachea midline, no LAD, no thyromegaly, no JVD Heart: +S1/S2, regular, no m/r/g Lungs: equal air entry bilaterally, no rales/rhonchi/wheezes Abd: +BS, soft, NT/ND, no masses/organomegaly/ascites Ext: redness, swelling of right wrist, tenderness with palpation, limited range of motion, 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 Neuro: nonfocal, patient AA&O x 4, speech intact, no facial droop, moving all extremities on command Results & Data Results & Data Vital Signs (Past 12 Hours) Vital Signs Temp Pulse Resp BP Pulse Ox O2 Del Method 05/03/25 04:13 75 05/03/25 03:48 73 19 98 Room Air 05/03/25 01:14 36.9 C 84 19 162/78 H 99 Room Air Laboratory Results Laboratory Results WBC 6.60 K/ul (4.8-10.8) 05/03/25 03:24 RBC 3.53 M/uL (4.20-5.40) L 05/03/25 03:24 Hgb 11.4 g/dl (12.0-16.0) L 05/03/25 03:24 Hct 32.2 % (37.0-47.0) L 05/03/25 03:24 MCV 91.2 fL (80.0-100.0) 05/03/25 03:24 MCH 32.3 pg (25.0-34.0) 05/03/25 03:24 MCHC 35.4 g/dL (32.0-36.0) 05/03/25 03:24 RDW Std Deviation 42.5 fL (36.4-46.3) 05/03/25 03:24 RDW Coeff of Ameya 13.0 % (11.5-14.5) 05/03/25 03:24 Plt Count 198 K/uL (130-400) 05/03/25 03:24 MPV 10.0 fL (9.4-12.4) 05/03/25 03:24 Immature Gran % (Auto) 2.9 % 05/03/25 03:24 Neut % (Auto) 72.6 % 05/03/25 03:24 Lymph % (Auto) 7.1 % 05/03/25 03:24 [place] % (Auto) 16.7 % 05/03/25 03:24 Eos % (Auto) 0.2 % 05/03/25 03:24 Baso % (Auto) 0.5 % 05/03/25 03:24 Neut # (Auto) 4.80 K/uL (1.40-6.50) 05/03/25 03:24 Lymph # (Auto) 0.47 K/uL (1.20-3.40) L 05/03/25 03:24 [place] # (Auto) 1.10 K/uL (0.11-0.59) H 05/03/25 03:24 Eos # (Auto) 0.01 K/uL (0.00-0.50) 05/03/25 03:24 Baso # (Auto) 0.03 K/uL (0.00-0.20) 05/03/25 03:24 Immature Gran # (Auto) 0.19 K/uL (0.01-0.20) 05/03/25 03:24 Sodium 116 mmol/L (136-145) L* 05/03/25 03:24 Potassium 4.1 mmol/L (3.5-5.1) 05/03/25 03:24 Chloride 85 mmol/L (98-107) L 05/03/25 03:24 Carbon Dioxide 23 mmol/L (21-32) 05/03/25 03:24 Anion Gap 8 (3-11) 05/03/25 03:24 BUN 10 mg/dl (6-23) 05/03/25 03:24 Creatinine 0.66 mg/dl (0.6-1.2) 05/03/25 03:24 Est Cr Clr Drug Dosing 53.8 ml/min 05/03/25 03:24 eGFR 88.62 05/03/25 03:24 BUN/Creatinine Ratio 15.2 (10-20) 05/03/25 03:24 Glucose 132 mg/dl (70-99(Fasting)) H 05/03/25 03:24 Calcium 8.6 mg/dl (8.6-10.3) 05/03/25 03:24 Total Bilirubin 0.5 mg/dl (0.2-1.0) 05/03/25 03:24 AST 17 U/L (13-39) 05/03/25 03:24 ALT 6 U/L (7-52) L 05/03/25 03:24 Alkaline Phosphatase 53 U/L (34-104) 05/03/25 03:24 Total Protein 6.8 gm/dl (6.0-8.3) 05/03/25 03:24 Albumin 3.8 gm/dl (3.4-5.0) 05/03/25 03:24 Globulin 3.0 gm/dl (2.5-4.0) 05/03/25 03:24 Albumin/Globulin Ratio 1.3 (0.9-2) 05/03/25 03:24 Lipase 18 U/L (11-82) 05/03/25 03:24 Lyme Disease Screen Negative (Negative) 05/03/25 03:24 Impressions Wrist X-Ray 05/03/25 02:43 EXAM: XR wrist LT min 3V routine CLINICAL HISTORY: Atraumatic wrist pain TECHNIQUE: X-ray images of the left wrist were obtained in anteroposterior (AP), lateral, and oblique projections. COMPARISON: No prior studies available for comparison. FINDINGS: Bone Structure: Bone structure is normal and aligned?no evidence of fracture or dislocation. Negative ulnar variance. Osteopenia with mild degenerative changes. Joint Spaces: Mild osteoarthritic changes of the scanned joints, more at the first carpometacarpal articulation. Otherwise, joint spaces are normal. No evidence of joint effusion or subluxation. Soft Tissues: Soft tissues appear normal and unremarkable. No soft tissue swelling, calcifications, or foreign bodies noted. IMPRESSION: 1. Negative ulnar variance. Osteopenia with mild degenerative changes of scanned joints. 2. No evidence of acute fracture, dislocation, or significant soft tissue abnormalities. Disclaimer: A subtle bone abnormality or fracture may not be readily apparent on X-rays; thus, clinical correlation and further imaging, including follow-up CT, MRI, or follow-up X-rays, are advised as needed. Electronically signed by Be Steven 05-03-2025 04:40 AM Knee X-Ray 05/03/25 03:24 EXAM: XR knee LT 3V CLINICAL HISTORY: pain, no trauma TECHNIQUE: X-ray images of the left knee were obtained in anteroposterior (AP), lateral, and sunrise/skyline (patellar) projections. COMPARISON: 09/28/2024 FINDINGS: Bone Structure: Bone structure is normal and well-aligned. No evidence of acute fractures or dislocations. No osseous lesions or abnormalities identified. Joint Spaces: Partially narrowed medial tibiofemoral and patellofemoral compartments. No significant narrowing of the lateral compartment. Articular Surfaces: Marginal tibiofemoral and patellar polar spurs are seen. Tibial spine spikikg is also noted. No signs of subchondral sclerosis. Patella: Patella is normal in position and alignment. No evidence of patellar dislocation or subluxation. Inferior patellar enthesopthyte is seen. Soft Tissues: Vacular calcifications noted. Additional Findings: Opacification seen in the suprapatellar space suggesting effusion. IMPRESSION: No evidence of acute fractures or dislocations. Mild osteoarthritic changes. Mild joint effusion. No significant interval changes. Disclaimer: A subtle bone abnormality or fracture may not be readily apparent on X-rays, thus clinical correlation and further imaging including follow-up CT, MRI, or follow-up X-rays are advised as needed. Electronically signed by Be Steven 05-03-2025 04:47 AM ECG Additional Comments: EKG with NSR at 75, no acute ischemic changes Code Status & VTE Plan VTE Prophylaxis Plan VTE Prophylaxis will be ordered: Yes PG Care Time/CCT Total # of Minutes Spent Total Time Spent with Patient: Total time spent is greater than 50% in coordination of care (as documented) at patient's floor/unit and/or counseling patient: Coding Level of Care Code 99340 INT INP/OBS CARE 3/75MIN Diagnoses Hyponatremia E87.1 Arthralgia M25.50 Primary hypertension I10 Hypertension type: primary hypertension Mixed hyperlipidemia E78.2 Hyperlipidemia type: mixed hyperlipidemia Acquired hypothyroidism E03.9 Hypothyroidism type: acquired Gastroesophageal reflux disease, unspecified whether esophagitis present K21.9 Esophagitis presence: esophagitis presence not specified (3) Hypertension Hypertension type: primary hypertension Qualified Code(s): I10 - Essential (primary) hypertension (4) Hyperlipidemia Hyperlipidemia type: mixed hyperlipidemia Qualified Code(s): E78.2 - Mixed hyperlipidemia (5) Hypothyroidism Hypothyroidism type: acquired Qualified Code(s): E03.9 - Hypothyroidism, unspecified (6) GERD (gastroesophageal reflux disease) Esophagitis presence: esophagitis presence not specified Qualified Code(s): K21.9 - Gastro-esophageal reflux disease without esophagitis
--- NOTE | 2025-05-03 06:46 | XRay Report ---
EXAM: XR chest 1V portable CLINICAL HISTORY: Weak, hyponatremia, eval for mass TECHNIQUE: An X-ray image of the chest is obtained in AP projection. COMPARISON: 00:55:00 [employer]AGES DEPARTMENT CHAIR. FINDINGS: Pulmonary Parenchyma: Focal atelectasis noted involving left lower zone near left costophrenic angle. Rest of Lungs are clear bilaterally. No evidence of consolidation, collapse, or focal opacities. No pulmonary nodules are identified. No evidence of pleural effusion or pleural thickening. Heart and Mediastinum: Heart size and shape are normal. No mediastinal widening or masses. No hilar or mediastinal lymphadenopathy. Bony Thorax: Bony thorax appears intact without fractures or deformities. Soft Tissues: Soft tissues overlying the chest wall are unremarkable. IMPRESSION: Focal atelectasis noted involving left lower zone near left costophrenic angle.-new finding. No other new interval abnormality since prior study. Electronically signed by Jose Smith 05-03-2025 06:45 AM
[2025-05-03 07:40] LABS: Appearance Urine Clear (Clear); Bacteria Urine Automated None Seen (None Seen); Cast Urine Automated 0-2 /lpf (0-2); Epithelial Cell Urine Auto 0-2 /hpf (0-2); Glucose Urine UA Trace (Negative); WBC Urine Automated 0-5 /hpf (0-5)
[2025-05-03] MEDS ORDERED: IBUPROFEN 600 MG TAB PO PRN (08:56)
[2025-05-03] MEDS ORDERED: ONDANSETRON INJ 2 MG/ML 2 ML VIAL IV PRN (08:56)
[2025-05-03] MEDS ORDERED: DOCUSATE SODIUM 100 MG CAP PO PRN (08:56)
[2025-05-03] MEDS ORDERED: POLYETHYLENE (MIRALAX) 17 GM PACK PO PRN (08:56)
[2025-05-03] MEDS ORDERED: MoRPHine SULFATE 2 MG/ML CARP IV PRN ×2 (08:56)
[2025-05-03] MEDS: FAMOTIDINE 20 MG TAB PO SCH (09:17)
[2025-05-03] MEDS: ACETAMINOPHEN 325 MG TAB PO PRN (09:17)
[2025-05-03] MEDS: ENOXAPARIN INJ 40 MG/0.4 ML SYR SQ SCH (09:17)
--- NOTE | 2025-05-03 10:19 | Hospitalist Progress Note ---
Date of Service May 03, 2025 Assessment & Plan (1) Hyponatremia: (2) Arthralgia: (3) Hypertension: (4) Hyperlipidemia: (5) Hypothyroidism: (6) GERD (gastroesophageal reflux disease): Plan: 79yo female with history of HTN, HLP, GERD presenting with several weeks of joint pain - bilateral wrist pain, shoulder pain and pain in her left knee. Also with redness, swelling. Generalized weakness and gait instability #Hyponatremia - Kl=882. Likely multifactorial. Patient is on HCTZ. Was recently started on Bactrim for management of suspected cellulitis which can also contribute to hyponatremia. Patient also with decreased oral intake. She reports gait instability but no other neurologic complaints. -Admit to PCU -urine and serum osm low although urine not very low to suggest attempts at correction, urine random sodium high -Check TSH, g and PO4 hypertonic slaine x 2 follow chemistry -Fluid restriction 1200mL/day for now #Arthritis - patient with pain and inflammation of several joints - bilateral wrists, shoulders and left knee. Patient with no history of trauma. No personal history of rheumatologic diseases. No recent illness. She was recently started on Fosamax 7 weeks ago which can cause joint pain. Lyme is negative. -Check CRP -Check ADDIE -Pain control with Tylenol, Ibuprofen PRN -Ice to wrists and painful joints as needed -Morphine as needed -Colace and Miralax PRN -Hold Fosamax - would consider discontinuing this medication as it is likely contributing to patient's joint pain and inflammation -Hold Bactrim #Hypertension - blood pressure elevated -Pain control -Continue Losartan #Hyperlipidemia - chronic, stable -Continue Pravastatin 20mg po qHS #Hypothyroidism -Check TSH -Continue Synthroid 25mcg po daily #GERD -Pepcid 20mg po BID F/E/N - Fluid restriction. Monitoring Na. Regular diet with sodium restriction 1200mL Ppx - Lovenox Code - Full per discussion on admission Dispo - Admit to PCU Admission and Anticipated Discharge Date Admission Date: May 03, 2025 Subjective pt doing well, has new medicine started inlast few weeks, Fosamax and recently bactrim, not feeling much improved tho Physical Exam Physical Exam: awake alert and appropriate, no distress Results & Data Results & Data Vital Signs (Past 12 Hours) Vital Signs Temp Pulse Pulse Resp BP BP Pulse Ox 05/03/25 10:00 98.1 F 84 16 154/68 H 94 05/03/25 09:37 76 18 129/69 94 05/03/25 08:39 73 05/03/25 07:00 68 17 134/68 94 05/03/25 04:54 77 15 96 05/03/25 04:48 83 23 95 05/03/25 04:39 80 18 98 05/03/25 04:30 144/70 H 05/03/25 04:24 76 17 93 05/03/25 04:18 79 20 96 05/03/25 04:13 75 05/03/25 03:48 73 19 98 05/03/25 01:14 98.4 F 84 19 162/78 H 99 O2 Del Method 05/03/25 10:00 Room Air 05/03/25 09:37 Room Air 05/03/25 08:39 05/03/25 07:00 Room Air 05/03/25 04:54 05/03/25 04:48 05/03/25 04:39 05/03/25 04:30 05/03/25 04:24 05/03/25 04:18 05/03/25 04:13 05/03/25 03:48 Room Air 05/03/25 01:14 Room Air Laboratory Results ordered hypertonic saline x2 checked follow up labs PG Care Time/CCT Total # of Minutes Spent Total Time Spent with Patient: Total time spent is greater than 50% in coordination of care (as documented) at patient's floor/unit and/or counseling patient: Coding Level of Care Code None Diagnoses Hyponatremia E87.1 Arthralgia M25.50 Primary hypertension I10 Hypertension type: primary hypertension Mixed hyperlipidemia E78.2 Hyperlipidemia type: mixed hyperlipidemia Acquired hypothyroidism E03.9 Hypothyroidism type: acquired Gastroesophageal reflux disease, unspecified whether esophagitis present K21.9 Esophagitis presence: esophagitis presence not specified (3) Hypertension Hypertension type: primary hypertension Qualified Code(s): I10 - Essential (primary) hypertension (4) Hyperlipidemia Hyperlipidemia type: mixed hyperlipidemia Qualified Code(s): E78.2 - Mixed hyperlipidemia (5) Hypothyroidism Hypothyroidism type: acquired Qualified Code(s): E03.9 - Hypothyroidism, unspecified (6) GERD (gastroesophageal reflux disease) Esophagitis presence: esophagitis presence not specified Qualified Code(s): K21.9 - Gastro-esophageal reflux disease without esophagitis
[2025-05-03 10:26] LABS: Anion Gap 6.0 (3-11); Blood Urea Nitrogen 8.0 mg/dl (6-23); Calcium 8.4 mg/dl (8.6-10.3); Carbon Dioxide 24.0 mmol/L (21-32); Chloride 87.0 mmol/L (98-107); Creatinine Clr Calc Pharmacy 60.1 ml/min; Glucose 129.0 mg/dl (70-99(Fasting)); Magnesium 1.9 mg/dl (1.7-2.4); Potassium 4.7 mmol/L (3.5-5.1); Sodium 117.0 mmol/L (136-145); Thyroid Stimulating Hormone 2.691 uIu/ml (0.300-4.500)
[2025-05-03] MEDS ORDERED: STAT IV/IM STA ×2 (10:36→15:56)
[2025-05-03] MEDS: SODIUM CHLORIDE 3 % 100 ML IV ONE ×2 (11:19→17:01)
[2025-05-03 13:47] LABS: Anion Gap 8.0 (3-11); Blood Urea Nitrogen 9.0 mg/dl (6-23); Calcium 8.2 mg/dl (8.6-10.3); Carbon Dioxide 22.0 mmol/L (21-32); Chloride 87.0 mmol/L (98-107); Creatinine Clr Calc Pharmacy 52.2 ml/min; Glucose 196.0 mg/dl (70-99(Fasting)); Potassium 4.3 mmol/L (3.5-5.1); Sodium 117.0 mmol/L (136-145)
[2025-05-03] MEDS: PRAVASTATIN SOD 20 MG TAB PO SCH (20:10)
[2025-05-03] MEDS: ASPIRIN 81 MG CHEW PO SCH (20:10)
[2025-05-03] MEDS: LOSARTAN POTASSIUM 25 MG TAB PO SCH (20:10)
[2025-05-04 00:33] LABS: Anion Gap 10.0 (3-11); Calcium 8.8 mg/dl (8.6-10.3); Carbon Dioxide 21.0 mmol/L (21-32); Chloride 93.0 mmol/L (98-107); Potassium 4.4 mmol/L (3.5-5.1); Sodium 124.0 mmol/L (136-145)
[2025-05-04 00:39] LABS: Blood Urea Nitrogen 11.0 mg/dl (6-23); Creatinine Clr Calc Pharmacy 48.6 ml/min; Glucose 141.0 mg/dl (70-99(Fasting))
[2025-05-04 01:01] LABS: Hematocrit (blood only) 33.4 % (37.0-47.0); Hemoglobin 11.8 g/dl (12.0-16.0); Immature Granulocytes # (auto) 0.06 K/uL (0.01-0.20); Immature Granulocytes % (auto) 1.2 %; Mean Corpuscular Hemoglobin 33.1 pg (25.0-34.0); Mean Corpuscular Volume 93.8 fL (80.0-100.0); Platelet Count 232 K/uL (130-400); RDW Standard Deviation 44.6 fL (36.4-46.3); Red Blood Count 3.56 M/uL (4.20-5.40); White Blood Count 5.02 K/ul (4.8-10.8)
[2025-05-04 01:18] LABS: Anion Gap 7.0 (3-11); Blood Urea Nitrogen 10.0 mg/dl (6-23); Calcium 8.5 mg/dl (8.6-10.3); Carbon Dioxide 26.0 mmol/L (21-32); Chloride 93.0 mmol/L (98-107); Creatinine Clr Calc Pharmacy 53.8 ml/min; Glucose 127.0 mg/dl (70-99(Fasting)); Potassium 4.2 mmol/L (3.5-5.1); Sodium 126.0 mmol/L (136-145)
[2025-05-04] MEDS: LEVOTHYROXINE SODIUM 25 MCG TABLET PO SCH (06:04)
[2025-05-04 06:09] LABS: Anion Gap 5.0 (3-11); Blood Urea Nitrogen 9.0 mg/dl (6-23); Calcium 8.4 mg/dl (8.6-10.3); Carbon Dioxide 25.0 mmol/L (21-32); Chloride 96.0 mmol/L (98-107); Creatinine Clr Calc Pharmacy 65.7 ml/min; Glucose 98.0 mg/dl (70-99(Fasting)); Potassium 4.1 mmol/L (3.5-5.1); Sodium 126.0 mmol/L (136-145)
--- NOTE | 2025-05-04 07:51 | Hospitalist Progress Note ---
Date of Service May 04, 2025 Assessment & Plan (1) Hyponatremia: (2) Arthralgia: (3) Hypertension: (4) Hyperlipidemia: (5) Hypothyroidism: (6) GERD (gastroesophageal reflux disease): Plan: 79yo female with history of HTN, HLP, GERD presenting with several weeks of joint pain - bilateral wrist pain, shoulder pain and pain in her left knee. Also with redness, swelling. Generalized weakness and gait instability #Hyponatremia - [id number] on presentation Likely multifactorial. Patient is on HCTZ. Was recently started on Bactrim for management of suspected cellulitis which can also contribute to hyponatremia. Patient also with decreased oral intake. She reports gait instability but no other neurologic complaints. -urine and serum osm low although urine not very low to suggest attempts at correction, urine random sodium high -normal TSH, g and PO4 hypertonic slaine x 2 good improvement will continue fluid restriction, repeat sodium shows 120 6 in the afternoon of 918 additional hypertonic saline given #Arthritis - patient with pain and inflammation of several joints - bilateral wrists, shoulders and left knee. Patient with no history of trauma. No personal history of rheumatologic diseases. No recent illness. She was recently started on Fosamax 7 weeks ago which can cause joint pain. Lyme is negative. -Check CRP -Check ADDIE -Pain control with Tylenol, Ibuprofen PRN -Ice to wrists and painful joints as needed -Morphine as needed -Colace and Miralax PRN -Hold Fosamax - would consider discontinuing this medication as it is likely contributing to patient's joint pain and inflammation -Hold Bactrim #Hypertension - blood pressure mild systolic elevation but diastolic controled -Pain control -Continue Losartan, continue to hold hctz #Hyperlipidemia - chronic, stable -Continue Pravastatin 20mg po qHS #Hypothyroidism -normal TSH -Continue Synthroid 25mcg po daily #GERD -Pepcid 20mg po BID Regular diet with sodium restriction 1200mL Ppx - Lovenox Code - Full per discussion on admission Admission and Anticipated Discharge Date Admission Date: May 03, 2025 Subjective Pt feels much better, arthritic pain also improved Physical Exam Physical Exam: awake alert and appropriate, no distress cardiac is regular neurologic is non focal Results & Data Results & Data Vital Signs (Past 12 Hours) Vital Signs Temp Pulse Pulse Resp BP Pulse Ox O2 Del Method 05/04/25 07:06 97.9 F 63 18 147/74 H 98 Room Air 05/04/25 02:29 98.1 F 80 18 139/74 98 Room Air 05/03/25 22:32 98.4 F 96 H 18 134/76 95 Room Air 05/03/25 22:16 90 Laboratory Results review chemistry on multiple episodes today PG Care Time/CCT Total # of Minutes Spent Total Time Spent with Patient: Total time spent is greater than 50% in coordination of care (as documented) at patient's floor/unit and/or counseling patient: Coding Level of Care Code 15782 SUB INP/OBS CARE 2/35MIN Diagnoses Hyponatremia E87.1 Arthralgia M25.50 Primary hypertension I10 Hypertension type: primary hypertension Mixed hyperlipidemia E78.2 Hyperlipidemia type: mixed hyperlipidemia Acquired hypothyroidism E03.9 Hypothyroidism type: acquired Gastroesophageal reflux disease, unspecified whether esophagitis present K21.9 Esophagitis presence: esophagitis presence not specified (3) Hypertension Hypertension type: primary hypertension Qualified Code(s): I10 - Essential (primary) hypertension (4) Hyperlipidemia Hyperlipidemia type: mixed hyperlipidemia Qualified Code(s): E78.2 - Mixed hyperlipidemia (5) Hypothyroidism Hypothyroidism type: acquired Qualified Code(s): E03.9 - Hypothyroidism, unspecified (6) GERD (gastroesophageal reflux disease) Esophagitis presence: esophagitis presence not specified Qualified Code(s): K21.9 - Gastro-esophageal reflux disease without esophagitis
[2025-05-04 09:40] LABS: Anion Gap 8.0 (3-11); Blood Urea Nitrogen 10.0 mg/dl (6-23); Calcium 8.6 mg/dl (8.6-10.3); Carbon Dioxide 23.0 mmol/L (21-32); Chloride 95.0 mmol/L (98-107); Creatinine Clr Calc Pharmacy 58.2 ml/min; Glucose 145.0 mg/dl (70-99(Fasting)); Potassium 3.7 mmol/L (3.5-5.1); Sodium 126.0 mmol/L (136-145)
[2025-05-04 16:01] LABS: Anion Gap 8.0 (3-11); Blood Urea Nitrogen 14.0 mg/dl (6-23); Calcium 8.6 mg/dl (8.6-10.3); Carbon Dioxide 25.0 mmol/L (21-32); Chloride 93.0 mmol/L (98-107); Creatinine Clr Calc Pharmacy 56.3 ml/min; Glucose 107.0 mg/dl (70-99(Fasting)); Potassium 4.4 mmol/L (3.5-5.1); Sodium 126.0 mmol/L (136-145)
[2025-05-04] MEDS ORDERED: STAT IV/IM STA (17:28)
[2025-05-04] MEDS: SODIUM CHLORIDE 3 % 100 ML IV ONE (17:56)
[2025-05-04 23:44] VITALS: O2SAT 96
[2025-05-05 06:37] LABS: Anion Gap 6.0 (3-11); Blood Urea Nitrogen 12.0 mg/dl (6-23); Calcium 8.8 mg/dl (8.6-10.3); Carbon Dioxide 25.0 mmol/L (21-32); Chloride 100.0 mmol/L (98-107); Creatinine Clr Calc Pharmacy 68.2 ml/min; Glucose 90.0 mg/dl (70-99(Fasting)); Potassium 4.4 mmol/L (3.5-5.1); Sodium 131.0 mmol/L (136-145)
[2025-05-05 07:12] VITALS: BP 162/87; PULSE 60; RESP 16; TEMP 97.5
--- NOTE | 2025-05-05 12:12 | Discharge Summary ---
Date of Service May 05, 2025 Admission HPI Per Admitting Provider Genny Corona is an 79yo female with history of HTN, HLP, GERD presenting with severe joint pain. Patient has been having pain, swelling, warmth and redness in her bilateral wrists with radiating pain into her shoulders and arms bilaterally. She was seen by her PCP for this complaint on 04/28/25 and was started on Bactrim for possible cellulitis. Also with pain in the left knee which has now improved. Patient's most severe pain at this time is in her right wrist. She has episodes of severe, shooting pain that cause her to jump and wince in pain. She has not been able to sleep well over the last several days. Also has not been eating well. She denies fever, chills, chest pain, cough, SOB. No vomiting, abdominal pain or diarrhea. She has had some nausea. Has developed some weakness in her hands bilaterally with some numbness in her fingertips as well. Patient also with gait instability. No seizures. In the ER she is afebrile, HD stable ER Course: Morphine 4mg IV Prednisone 40mg po Zofran 4mg IV NSS 500mL Admission Exam (Per Admitting) Constitutional The patient is awake, alert and oriented 3, well developed and well nourished, normocephalic and atraumatic, lying in bed and in no acute distress. HEENT--PERRL, EOMI, mucous membranes and oropharynx mildly dry Neck--supple. No JVD. No bruits. Thyroid normal, trachea midline, no adenopathy. Heart--normal S1 and S2. No murmurs, rubs or gallops. Lungs--clear bilaterally, no respiratory distress, no accessory muscle use. Abdomen--normal bowel sounds and soft. Extremities--no cyanosis or clubbing. No edema. Dermatologic--normal skin turgor, normal color, no abnormal lymph nodes, no rash. Neurologic--cranial nerves II through XII grossly intact. Rheumatologic--normal range of motion. Psychiatric--normal affect. Discharge Data Consultations 05/03/25 04:46 ED Decision to Admit Stat Hospital Course (1) Hyponatremia: (2) Arthralgia: (3) Hypertension: (4) Hyperlipidemia: (5) Hypothyroidism: (6) GERD (gastroesophageal reflux disease): 79yo female with history of HTN, HLP, GERD presenting with several weeks of joint pain - bilateral wrist pain, shoulder pain and pain in her left knee. Also with redness, swelling. Generalized weakness and gait instability #Hyponatremia - [id number] on presentation Likely multifactorial. Patient is on HCTZ. Was recently started on Bactrim for management of suspected cellulitis which can also contribute to hyponatremia. Patient also with decreased oral intake. She reports gait instability but no other neurologic complaints. -urine and serum osm low although urine not very low to suggest attempts at correction, urine random sodium high -normal TSH, g and PO4 hypertonic slaine x 2 good improvement will continue fluid restriction, repeat sodium shows 131 Will d/c her on PO salt tablets 1gm daily asked to follow up with PCP #Arthritis - patient with pain and inflammation of several joints - bilateral wrists, shoulders and left knee. Patient with no history of trauma. No personal history of rheumatologic diseases. No recent illness. She was recently started on Fosamax 7 weeks ago which can cause joint pain. Lyme is negative. -Check CRP -Check ADDIE -Pain control with Tylenol, Ibuprofen PRN -Ice to wrists and painful joints as needed -Morphine as needed -Colace and Miralax PRN -Hold Fosamax - would consider discontinuing this medication as it is likely contributing to patient's joint pain and inflammation -Hold Bactrim #Hypertension - blood pressure mild systolic elevation but diastolic controled -Pain control -Continue Losartan, resume home hctz #Hyperlipidemia - chronic, stable -Continue Pravastatin 20mg po qHS #Hypothyroidism -normal TSH -Continue Synthroid 25mcg po daily #GERD -Pepcid 20mg po BID Regular diet with sodium restriction 1200mL Ppx - Lovenox Code - Full per discussion on admission Coding Level of Care Code 03967 INP/OBS DISCH >30 MIN Diagnoses Hyponatremia E87.1 Arthralgia M25.50 Primary hypertension I10 Hypertension type: primary hypertension Mixed hyperlipidemia E78.2 Hyperlipidemia type: mixed hyperlipidemia Acquired hypothyroidism E03.9 Hypothyroidism type: acquired Gastroesophageal reflux disease, unspecified whether esophagitis present K21.9 Esophagitis presence: esophagitis presence not specified Time Spent (min) 35
[2025-05-05 14:37] LABS: Anti Nuclear Antibody Screen NEGATIVE (NEGATIVE)
--- NOTE | 2025-05-06 07:50 | Electrocardiogram Report ---
Test Reason : Blood Pressure : */* mmHG Vent. Rate : 75 BPM Atrial Rate : 75 BPM P-R Int : 194 ms QRS Dur : 88 ms QT Int : 386 ms P-R-T Axes : 61 60 14 degrees QTcB Int : 431 ms Normal sinus rhythm Normal ECG When compared with ECG of 30-Nov-2024 01:22, No significant change was found Confirmed by Jerrod Mcguire ([id number] on 05/06/2025 7:50:22 AM Referred By: REFERRED SELF Confirmed By: Jerrod Mcguire
== END 2025-05-05 10:32 | disposition home or self-care (01) | DRG 641 ==
LOC: SUATTDRO → ED 01:09 → SUATTDRO 05:04 → EDINP 05:04 → 4W 09:57